=== PATIENT | male | born 1940 | race Caucasian/White ===

== ENCOUNTER 2018-03-10 21:02 | Inpatient (IN) | payer MEDICARE, MEDICAID ==
--- NOTE | 2018-03-10 21:09 | C.PDOC ---
History Of Present Illness 77 year old male presents to the ED [facility] for an evaluation of new onset difficulty walking, slurred speech, and increased worsening confusion for one week. Patient normally uses walker but lately has been having trouble balancing even when using walker. Reports multiple falls this week. Denies changes in appetite, vision changes, nausea, vomiting, diarrhea, abdominal pain, dysuria, hematuria, incontinence, fever, chills. History per EMS, , and patient. HPI limited due to patient's clinical condition. Time Seen by Provider: 03/10/18 21:07 Chief Complaint (Nursing): Altered Mental Status History Per: Patient, EMS, Family () History/Exam Limitations: Clinical Condition Onset/Duration Of Symptoms: Days Current Symptoms Are (Timing): Still Present Usual Baseline: Amb W/Assist (walker) Speech Is: Slurred Decreased Ability To: Walk Associated Symptoms: denies: Fever, Chills, Not Eating, Not Drinking, Vomiting, Diarrhea Past Medical History Reviewed: Historical Data, Nursing Documentation, Vital Signs - Medical History PMH: CAD, Diabetes, HTN, Hypercholesterolemia Surgical History: Coronary Stent - [facility] Procedures INJECT/INFUSE NEC (06/08/14) Family History: States: No Known Family Hx Review Of Systems Except As Marked, All Systems Reviewed And Found Negative. (limited due to patient's clinical condition) Constitutional: Negative for: Fever, Chills Eyes: Negative for: Vision Change Gastrointestinal: Negative for: Nausea, Vomiting, Abdominal Pain, Diarrhea Genitourinary: Negative for: Dysuria, Incontinence, Hematuria Musculoskeletal: Positive for: Other Neurological: Positive for: Change in Speech (slurred speech), Confusion, Altered Mental Status, Other (difficulty walking) Physical Exam - Physical Exam Appears: Non-toxic, No Acute Distress Skin: Warm, Dry Head: Atraumatic Eye(s): bilateral: EOMI Nose: Normal Oral Mucosa: Moist Neck: Supple Chest: Symmetrical Cardiovascular: Rhythm Regular Respiratory: No Rales, No Rhonchi, No Wheezing, Other (CTA B/L) Gastrointestinal/Abdominal: Soft, No Tenderness, No Guarding, No Rebound Extremity: Bilateral: Atraumatic, Normal Color And Temperature, Normal ROM Neurological/Psych: Oriented x3, No Normal Speech (slurred speech ) Gait: With Assistance ED Course And Treatment - Laboratory Results Result Diagrams: 03/10/18 21:22 03/10/18 21:22 ECG: Interpreted By Me, Viewed By Me ECG Rhythm: Sinus Rhythm, R BBB Rate From EC (BPM) O2 Sat by Pulse Oximetry: 100 (RA) Pulse Ox Interpretation: Normal - CT Scan/US Ct head Other Rad Studies (CT/US): Read By Radiologist, Radiology Report Reviewed CT/US Interpretation: EXAM: CT Head without Intravenous Contrast. CLINICAL HISTORY: AMS, SLURRED SPEECH, DIFF WALKING, SOB. TECHNIQUE: Axial computed tomography images of the head/brain without intravenous contrast. 0.00 mGy-cm. COMPARISON: None provided. FINDINGS: BRAIN. Chronic periventricular and subcortical microvascular disease is seen. VENTRICLES: There is generalized parenchymal atrophy noted as demonstrated by symmetrical dilatation of ventricles and sulci. ORBITS: The orbits are unremarkable. SINUSES AND MASTOIDS: The paranasal sinuses and mastoid air cells are clear. BONES: No fracture. SOFT TISSUES: Unremarkable. MISCELLANEOUS: No acute intracranial pathology. IMPRESSION: 1. There is generalized parenchymal atrophy noted as demonstrated by symmetrical dilatation of ventricles and sulci. 2. Chronic periventricular and subcortical microvascular disease is seen. 3. No acute intracranial pathology. . Electronically signed on Mar 10, 2018 9:59:33 PM EST by: Edd Bains M.D., SEJAL Certified By ABR & CBCCT. Fellowship Trained MRI and CT Specialist NIHSS Stroke Scale - Date/Time Evaluation Performed Date Performed: 03/10/18 Time Performed: 21:08 When Was NIHSS Performed: Baseline - How Severe is the Stoke Level of Consciousness: 1=Drowsy LOC to Questions: 0=Both comments correct LOC to commands: 0=Obeys both correctly Best Gaze: 0=Normal Visual: 0=No visual loss Facial: 0=Normal Motor Arm - Left: 0=No drift Motor Arm - Right: 0=No drift Motor Leg - Left: 2=Falls before 5 sec Motor Leg - Right: 2=Falls before 5 sec Limb Ataxia: 0=Absent Sensory: 0=Normal Best Language: 0=No aphasia Dysarthia: 1=Mild to moderate slurring Extinction & Inattention (Neglect): 0=Normal, no object Score: 6 Progress - Re-Evaluation Re-evaluation Note: 03/10/18 23:43 EXAM UNCH INITIAL. 03/10/18 23:47 D/W DR KWAN C/F PMD WILL ADMIT - Data Reviewed Data Reviewed: Lab, Diagnostic imaging, EKG, Old records rTPA Inclusion/Exclusion - Refusal of Treatment Patient Refused Treatment: No - Inclusion Criteria for Altepase Patient is 18 years or Older: Yes Clinical DX Ischemic Stroke Cause Neurological Deficit: Yes Time of Onset Established Less Than 270 Mins Before TX Begin: No Risk/Benefit Discussed With Patient/Family Member Present: No - Exclusion Criteria for Altepase Uncontrolled Hypertension at Time of TX (SBP>185 or DBP>110): No Active Internal Bleeding: No Known Bleeding Diathesis: No Evidence of an Intracranial Hemorrhage: No Evidence Major Acute Infarct w/ Signs Greater Than 1/3 MCA: No Suspicion of Subarachnoid Bleed on PreTX Eval(CT: neg bleed): No - Warning to TPA With Conditions Following Conditions Weighed Against Anticipated Benefit: Yes Condition: Age Greater Than 75 years, Care Team Unable to Determine Eligibilty Medical Decision Making Medical Decision Making: Plan - Bloodwork - CT head - EKG - Bloodwork - CXR - UA - Aspirin 325mg PO TPA not indicated due to time of onset of symptoms. Disposition Counseled Patient/Family Regarding: Studies Performed, Diagnosis - Disposition Disposition: HOSPITALIZED Disposition Time: 23:48 Condition: STABLE - POA Present On Arrival: Falls Or Trauma - Clinical Impression Clinical Impression: Altered mental state, Difficulty walking, Minor head injury without loss of consciousness - Scribe Statement The provider has reviewed the documentation as recorded by the Kiaraibgabriella Bowen All medical record entries made by the Scribe were at my direction and personally dictated by me. I have reviewed the chart and agree that the record accurately reflects my personal performance of the history, physical exam, medical decision making, and the department course for this patient. I have also personally directed, reviewed, and agree with the discharge instructions and disposition.
[2018-03-10 21:46] LABS: INR 1.2; PROTHROMBIN TIME 12.9 SECONDS (9.7-12.2)
[2018-03-10 21:50] LABS: ALB/GLOB RATIO 1.6 (1.0-2.1); ALBUMIN 4.3 g/dL (3.5-5.0); CALCIUM 8.9 mg/dl (8.6-10.4)
[2018-03-10 21:58] LABS: BASO % 0.4 % (0.0-2.0); EOS # 0.2 K/uL (0.0-0.7); HEMOGLOBIN 11.7 g/dL (12.0-18.0); LYMPH # 0.7 K/uL (1.0-4.3); LYMPH % 11.4 % (20.0-40.0); MEAN CELL VOLUME 98.5 fL (80.0-94.0); MEAN CORPUSCULAR HEMOGLOBIN 33.3 pg (27.0-31.0); MEAN CORPUSCULAR HGB CONC 33.8 g/dL (33.0-37.0); MEAN PLATELET VOLUME 8.7 fL (7.2-11.7); MONO # 0.5 K/uL (0.0-0.8); MONO % 9.2 % (0.0-10.0); NEUT # 4.3 K/uL (1.8-7.0); NRBC % 0.1 % (0.0-2.0); RBC 3.51 Mil/uL (4.40-5.90); RED CELL DISTRIBUTION WIDTH 13.4 % (11.5-14.5); WHITE BLOOD COUNT 5.8 K/uL (4.8-10.8)
[2018-03-10 22:00] LABS: TROPONIN I 0.04 ng/mL (0.00-0.120)
[2018-03-10 23:36] LABS: URINE BILIRUBIN NEGATIVE (NEGATIVE); URINE BLOOD NEGATIVE (NEGATIVE); URINE CLARITY Clear (Clear); URINE COLOR Yellow (YELLOW); URINE GLUCOSE (UA) 1+ mg/dL (Normal); URINE LEUKOCYTE ESTERASE NEG Leu/uL (Negative); URINE PROTEIN 2+ mg/dL (NEGATIVE); URINE UROBILINOGEN NORMAL mg/dL (0.2-1.0)
--- NOTE | 2018-03-11 00:33 | CP.PCM.HP ---
<RajJoseph quezada - Last Filed: 03/11/18 02:00> History of Present Illness - History of Present Illness History of Present Illness: Patient is a 77 year old male with past medical history of HTN, HLD, DM, CAD s/p stent presenting to ED with AMS and new onset difficulty walking for 1 week. Hi story difficult to obtain as patient has very garbled speech. Sling Operator service #[id number] able to understand better when patient speaks slowly but still had difficulty understanding. Per ED note, patient typically uses a walker at home but has been having increasing difficulty maintaining balance. Patient was able to endorse multiple falls this past week, most recent one being earlier today. Patient states he was walking and suddenly felt dizzy, with his legs giving out on him. 12 pt ROS difficult to obtain due to language barrier/garbled speech. Patient does endorse "pain everywhere", seemingly chronic in nature. No chest pain or abdominal pain noted, no sob. PMHx: HTN, HLD, DM, CAD PSHx: stent placement Allergies: NKDA Home Medications: Zoloft 25 mg PO daily, Imdur 60 mg PO daily, Lasix 40 mg PO daily, ASA 81 mg PO daily, Amlodipine/Benazepril 1 cap PO daily---call pharmacy in AM to confirm: [facility] [phone] Social Hx: denies alcohol, tobacco, illicit drug use Family Hx: unknown PMD: Dr. Sal Relative contact: Amanda Ricardo, Present on Admission - Present on Admission Any Indicators Present on Admission: Yes Review of Systems - Review of Systems Systems not reviewed;Unavailable: Language Barrier All systems: reviewed and no additional remarkable complaints except Review of Systems: as per HPI Past Patient History - Tetanus Immunizations Tetanus Immunization: Unknown - Past Social History Smoking Status: Former Smoker - CARDIAC Hx Hypercholesterolemia: Yes Hx Hypertension: Yes - ENDOCRINE/METABOLIC Hx Diabetes Mellitus Type 2: Yes - MUSCULOSKELETAL/RHEUMATOLOGICAL Hx Falls: Yes - PSYCHIATRIC Hx Substance Use: No - SURGICAL HISTORY Hx Coronary Stent: Yes Meds Allergies/Adverse Reactions: Allergies Allergy/AdvReac Type Severity Reaction Status Date / Time No Known Allergies Allergy Verified 03/10/18 21:10 Physical Exam - Constitutional Appears: Non-toxic, No Acute Distress, Confused - Head Exam Head Exam: ATRAUMATIC, NORMAL INSPECTION, NORMOCEPHALIC - Eye Exam Eye Exam: EOMI, Normal appearance Pupil Exam: NORMAL ACCOMODATION - ENT Exam ENT Exam: Mucous Membranes Moist, Normal Exam - Neck Exam Neck exam: Positive for: Normal Inspection. Negative for: Tenderness - Respiratory Exam Respiratory Exam: Clear to Auscultation Bilateral. absent: Accessory Muscle Use, Rales, Rhonchi, Wheezes, Respiratory Distress, Stridor - Cardiovascular Exam Cardiovascular Exam: REGULAR RHYTHM, +S1, +S2 - GI/Abdominal Exam GI & Abdominal Exam: Distended, Normal Bowel Sounds, Soft. absent: Firm, Guarding, Organomegaly, Rebound, Tenderness - Extremities Exam Extremities exam: Positive for: normal capillary refill, pedal edema, pedal pulses present. Negative for: calf tenderness - Back Exam Back exam: NORMAL INSPECTION, tenderness - Neurological Exam Neurological exam: Alert, CN II-XII Intact Additional comments: alert to self and place, did not know month - Psychiatric Exam Psychiatric exam: Normal Affect, Normal Mood - Skin Skin Exam: Dry, Intact, Normal Color, Warm Additional comments: bruising noted b/l shins, knees, L lateral thigh--pt has hx of multiple falls Results - Vital Signs Recent Vital Signs: Last Vital Signs Temp 98.1 F 03/10/18 21:05 Pulse 87 03/10/18 23:24 Resp 14 03/10/18 23:24 BP 145/53 L 03/10/18 23:24 Pulse Ox 100 03/11/18 00:17 - Labs Result Diagrams: 03/10/18 21:22 03/10/18 21:22 Labs: Laboratory Results - last 24 hr 03/10/18 03/10/18 03/10/18 21:05 21:22 21:22 WBC 5.8 RBC 3.51 L Hgb 11.7 L Hct 34.5 L MCV 98.5 H MCH 33.3 H MCHC 33.8 RDW 13.4 Plt Count 175 MPV 8.7 Neut % (Auto) 75.0 Lymph % (Auto) 11.4 L [place] % (Auto) 9.2 Eos % (Auto) 4.0 Baso % (Auto) 0.4 Neut # (Auto) 4.3 Lymph # (Auto) 0.7 L [place] # (Auto) 0.5 Eos # (Auto) 0.2 Baso # (Auto) 0.0 PT 12.9 H INR 1.2 APTT 54 H Sodium Potassium Chloride Carbon Dioxide Anion Gap BUN Creatinine Est GFR ( Amer) Est GFR (Non-Af Amer) POC Glucose (mg/dL) 194 H Random Glucose Hemoglobin A1c Calcium Total Bilirubin AST ALT Alkaline Phosphatase Troponin I Total Protein Albumin Globulin Albumin/Globulin Ratio Triglycerides Cholesterol LDL Cholesterol Direct HDL Cholesterol Urine Color Urine Clarity Urine pH Ur Specific [place] Urine Protein Urine Glucose (UA) Urine Ketones Urine Blood Urine Nitrate Urine Bilirubin Urine Urobilinogen Ur Leukocyte Esterase Urine WBC (Auto) Urine RBC (Auto) Blood Type Antibody Screen 03/10/18 03/10/18 03/10/18 21:22 21:22 21:22 WBC RBC Hgb Hct MCV MCH MCHC RDW Plt Count MPV Neut % (Auto) Lymph % (Auto) [place] % (Auto) Eos % (Auto) Baso % (Auto) Neut # (Auto) Lymph # (Auto) [place] # (Auto) Eos # (Auto) Baso # (Auto) PT INR APTT Sodium 139 Potassium 4.3 Chloride 103 Carbon Dioxide 25 Anion Gap 15 BUN 38 H Creatinine 1.8 H Est GFR ( Amer) 44 Est GFR (Non-Af Amer) 37 POC Glucose (mg/dL) Random Glucose 187 H Hemoglobin A1c 6.2 Calcium 8.9 Total Bilirubin 0.6 AST 52 ALT 45 Alkaline Phosphatase 77 Troponin I 0.0400 Total Protein 7.0 Albumin 4.3 Globulin 2.7 Albumin/Globulin Ratio 1.6 Triglycerides 176 H Cholesterol 150 LDL Cholesterol Direct 79 HDL Cholesterol 42 Urine Color Urine Clarity Urine pH Ur Specific [place] Urine Protein Urine Glucose (UA) Urine Ketones Urine Blood Urine Nitrate Urine Bilirubin Urine Urobilinogen Ur Leukocyte Esterase Urine WBC (Auto) Urine RBC (Auto) Blood Type A POSITIVE Antibody Screen Negative 03/10/18 23:31 WBC RBC Hgb Hct MCV MCH MCHC RDW Plt Count MPV Neut % (Auto) Lymph % (Auto) [place] % (Auto) Eos % (Auto) Baso % (Auto) Neut # (Auto) Lymph # (Auto) [place] # (Auto) Eos # (Auto) Baso # (Auto) PT INR APTT Sodium Potassium Chloride Carbon Dioxide Anion Gap BUN Creatinine Est GFR ( Amer) Est GFR (Non-Af Amer) POC Glucose (mg/dL) Random Glucose Hemoglobin A1c Calcium Total Bilirubin AST ALT Alkaline Phosphatase Troponin I Total Protein Albumin Globulin Albumin/Globulin Ratio Triglycerides Cholesterol LDL Cholesterol Direct HDL Cholesterol Urine Color Yellow Urine Clarity Clear Urine pH 6.0 Ur Specific [place] 1.013 Urine Protein 2+ H Urine Glucose (UA) 1+ H Urine Ketones Negative Urine Blood Negative Urine Nitrate Negative Urine Bilirubin Negative Urine Urobilinogen Normal Ur Leukocyte Esterase Neg Urine WBC (Auto) 1 Urine RBC (Auto) < 1 Blood Type Antibody Screen Assessment & Plan - Assessment and Plan (Free Text) Assessment: 77 year old male with PMHx of CAD, HTN, HLD, DM presenting to ED with AMS, new onset difficulty walking x 1 week Plan: AMS, r/o CVA -no neurological deficits noted on PE -trop x 1 negative -s/p ASA 325 mg PO in ED -TPA not indicated due to time of onset of symptoms -CT head: no acute intracranial pathology noted -f/u CT abdomen/pelvis, CT chest -ASA 81 mg PO Daily New Onset Difficulty Walking, Leg Edema, r/o CHF exacerbation -EKG: NSR @ 86 bpm, RBBB, L anterior fascicular block -CXR: no active disease -f/u ECHO -Lasix 40 mg PO daily HTN -currently hypotensive, continue to monitor -home meds held HLD -TG 176 -cholesterol, HDL, LDL wnl -not on home statin DM -A1C 6.2 -not on home meds -accuchecks ACHS PPx, Diet, Disposition -DVT ppx: SCDs -Diet: HHD -PT/OT on board Case discussed with Dr. Brenda Sylvester DO, PGY-1 <Rj Gutierrez P - Last Filed: 03/11/18 05:06> Results - Vital Signs Recent Vital Signs: Last Vital Signs Temp 98.1 F 03/11/18 03:30 Pulse 90 03/11/18 03:59 Resp 20 03/11/18 03:59 BP 152/72 H 03/11/18 03:59 Pulse Ox 100 03/11/18 03:59 - Labs Result Diagrams: 03/11/18 03:59 03/11/18 03:59 Labs: Laboratory Results - last 24 hr 03/10/18 03/10/18 03/10/18 21:05 21:22 21:22 WBC 5.8 RBC 3.51 L Hgb 11.7 L Hct 34.5 L MCV 98.5 H MCH 33.3 H MCHC 33.8 RDW 13.4 Plt Count 175 MPV 8.7 Neut % (Auto) 75.0 Lymph % (Auto) 11.4 L [place] % (Auto) 9.2 Eos % (Auto) 4.0 Baso % (Auto) 0.4 Neut # (Auto) 4.3 Lymph # (Auto) 0.7 L [place] # (Auto) 0.5 Eos # (Auto) 0.2 Baso # (Auto) 0.0 PT 12.9 H INR 1.2 APTT 54 H Puncture Site pCO2 pO2 HCO3 ABG pH ABG Total CO2 ABG O2 Saturation ABG Base Excess ABG Hemoglobin ABG Carboxyhemoglobin POC ABG HHb (Measured) ABG Methemoglobin Ramírez Test A-a O2 Difference Respiratory Index Hgb O2 Saturation Liter Flow FiO2 Sodium Potassium Chloride Carbon Dioxide Anion Gap BUN Creatinine Est GFR ( Amer) Est GFR (Non-Af Amer) POC Glucose (mg/dL) 194 H Random Glucose Hemoglobin A1c Calcium Phosphorus Magnesium Total Bilirubin AST ALT Alkaline Phosphatase Troponin I NT-Pro-B Natriuret Pep Total Protein Albumin Globulin Albumin/Globulin Ratio Triglycerides Cholesterol LDL Cholesterol Direct HDL Cholesterol Urine Color Urine Clarity Urine pH Ur Specific [place] Urine Protein Urine Glucose (UA) Urine Ketones Urine Blood Urine Nitrate Urine Bilirubin Urine Urobilinogen Ur Leukocyte Esterase Urine WBC (Auto) Urine RBC (Auto) Blood Type Antibody Screen 03/10/18 03/10/18 03/10/18 21:22 21:22 21:22 WBC RBC Hgb Hct MCV MCH MCHC RDW Plt Count MPV Neut % (Auto) Lymph % (Auto) [place] % (Auto) Eos % (Auto) Baso % (Auto) Neut # (Auto) Lymph # (Auto) [place] # (Auto) Eos # (Auto) Baso # (Auto) PT INR APTT Puncture Site pCO2 pO2 HCO3 ABG pH ABG Total CO2 ABG O2 Saturation ABG Base Excess ABG Hemoglobin ABG Carboxyhemoglobin POC ABG HHb (Measured) ABG Methemoglobin Ramírez Test A-a O2 Difference Respiratory Index Hgb O2 Saturation Liter Flow FiO2 Sodium 139 Potassium 4.3 Chloride 103 Carbon Dioxide 25 Anion Gap 15 BUN 38 H Creatinine 1.8 H Est GFR ( Amer) 44 Est GFR (Non-Af Amer) 37 POC Glucose (mg/dL) Random Glucose 187 H Hemoglobin A1c 6.2 Calcium 8.9 Phosphorus Magnesium Total Bilirubin 0.6 AST 52 ALT 45 Alkaline Phosphatase 77 Troponin I 0.0400 NT-Pro-B Natriuret Pep Total Protein 7.0 Albumin 4.3 Globulin 2.7 Albumin/Globulin Ratio 1.6 Triglycerides 176 H Cholesterol 150 LDL Cholesterol Direct 79 HDL Cholesterol 42 Urine Color Urine Clarity Urine pH Ur Specific [place] Urine Protein Urine Glucose (UA) Urine Ketones Urine Blood Urine Nitrate Urine Bilirubin Urine Urobilinogen Ur Leukocyte Esterase Urine WBC (Auto) Urine RBC (Auto) Blood Type A POSITIVE Antibody Screen Negative 03/10/18 03/11/18 03/11/18 23:31 03:59 03:59 WBC 6.6 RBC 3.31 L Hgb 10.9 L Hct 32.2 L MCV 97.4 H MCH 32.9 H MCHC 33.8 RDW 13.4 Plt Count 157 MPV 8.6 Neut % (Auto) 80.0 H Lymph % (Auto) 9.9 L [place] % (Auto) 8.6 Eos % (Auto) 1.2 Baso % (Auto) 0.3 Neut # (Auto) 5.2 Lymph # (Auto) 0.6 L [place] # (Auto) 0.6 Eos # (Auto) 0.1 Baso # (Auto) 0.0 PT INR APTT Puncture Site pCO2 pO2 HCO3 ABG pH ABG Total CO2 ABG O2 Saturation ABG Base Excess ABG Hemoglobin ABG Carboxyhemoglobin POC ABG HHb (Measured) ABG Methemoglobin Ramírez Test A-a O2 Difference Respiratory Index Hgb O2 Saturation Liter Flow FiO2 Sodium 138 Potassium 4.1 Chloride 104 Carbon Dioxide 24 Anion Gap 14 BUN 35 H Creatinine 1.4 Est GFR ( Amer) 59 Est GFR (Non-Af Amer) 49 POC Glucose (mg/dL) Random Glucose 183 H Hemoglobin A1c Calcium 8.7 Phosphorus 3.2 Magnesium 2.0 Total Bilirubin 0.6 AST 45 ALT 43 Alkaline Phosphatase 76 Troponin I NT-Pro-B Natriuret Pep 2160 H Total Protein 6.5 Albumin 3.9 Globulin 2.6 Albumin/Globulin Ratio 1.5 Triglycerides Cholesterol LDL Cholesterol Direct HDL Cholesterol Urine Color Yellow Urine Clarity Clear Urine pH 6.0 Ur Specific [place] 1.013 Urine Protein 2+ H Urine Glucose (UA) 1+ H Urine Ketones Negative Urine Blood Negative Urine Nitrate Negative Urine Bilirubin Negative Urine Urobilinogen Normal Ur Leukocyte Esterase Neg Urine WBC (Auto) 1 Urine RBC (Auto) < 1 Blood Type Antibody Screen 03/11/18 04:20 WBC RBC Hgb Hct MCV MCH MCHC RDW Plt Count MPV Neut % (Auto) Lymph % (Auto) [place] % (Auto) Eos % (Auto) Baso % (Auto) Neut # (Auto) Lymph # (Auto) [place] # (Auto) Eos # (Auto) Baso # (Auto) PT INR APTT Puncture Site Rr pCO2 46 H pO2 121 H HCO3 22.9 ABG pH 7.32 L ABG Total CO2 25.1 ABG O2 Saturation 98.5 H ABG Base Excess -2.6 L ABG Hemoglobin 12.9 ABG Carboxyhemoglobin 1.6 H POC ABG HHb (Measured) 1.5 ABG Methemoglobin 1.2 Ramírez Test Pos A-a O2 Difference 50.0 Respiratory Index 0.4 Hgb O2 Saturation 95.8 Liter Flow 3.0 FiO2 32.0 Sodium Potassium Chloride Carbon Dioxide Anion Gap BUN Creatinine Est GFR ( Amer) Est GFR (Non-Af Amer) POC Glucose (mg/dL) Random Glucose Hemoglobin A1c Calcium Phosphorus Magnesium Total Bilirubin AST ALT Alkaline Phosphatase Troponin I NT-Pro-B Natriuret Pep Total Protein Albumin Globulin Albumin/Globulin Ratio Triglycerides Cholesterol LDL Cholesterol Direct HDL Cholesterol Urine Color Urine Clarity Urine pH Ur Specific [place] Urine Protein Urine Glucose (UA) Urine Ketones Urine Blood Urine Nitrate Urine Bilirubin Urine Urobilinogen Ur Leukocyte Esterase Urine WBC (Auto) Urine RBC (Auto) Blood Type Antibody Screen Attending/Attestation - Attestation I have personally seen and examined this patient.: Yes I have fully participated in the care of the patient.: Yes I have reviewed all pertinent clinical information: Yes Notes (Text): 03/11/18 05:00 * Multiple falls * Poor communication due to hoarse voice, noisey non laboured breathing, neck vs vocal cord issue * Chronic leg edema * CRI * 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
[2018-03-11 04:04] LABS: BASO % 0.3 % (0.0-2.0); EOS # 0.1 K/uL (0.0-0.7); EOS % 1.2 % (0.0-4.0); HEMOGLOBIN 10.9 g/dL (12.0-18.0); LYMPH # 0.6 K/uL (1.0-4.3); LYMPH % 9.9 % (20.0-40.0); MEAN CELL VOLUME 97.4 fL (80.0-94.0); MEAN CORPUSCULAR HEMOGLOBIN 32.9 pg (27.0-31.0); MEAN CORPUSCULAR HGB CONC 33.8 g/dL (33.0-37.0); MEAN PLATELET VOLUME 8.6 fL (7.2-11.7); MONO # 0.6 K/uL (0.0-0.8); MONO % 8.6 % (0.0-10.0); NEUT # 5.2 K/uL (1.8-7.0); PLATELET COUNT 157 K/uL (130-400); RBC 3.31 Mil/uL (4.40-5.90); RED CELL DISTRIBUTION WIDTH 13.4 % (11.5-14.5); WHITE BLOOD COUNT 6.6 K/uL (4.8-10.8)
[2018-03-11 04:14] LABS: ALB/GLOB RATIO 1.5 (1.0-2.1); ALBUMIN 3.9 g/dL (3.5-5.0); CALCIUM 8.7 mg/dl (8.6-10.4)
[2018-03-11 04:27] LABS: ABG ALLEN TEST POS; ARTERIAL BLOOD GAS HCO3 22.9 mmol/L (21-28); ARTERIAL BLOOD GAS HEMOGLOBIN 12.9 g/dL (11.7-17.4); ARTERIAL BLOOD GAS O2 SAT 98.5 % (95-98); ARTERIAL BLOOD GAS PCO2 46 mm/Hg (35-45); ARTERIAL BLOOD GAS PH 7.32 (7.35-7.45); ARTERIAL BLOOD GAS PO2 121 mm/Hg (80-100); ARTERIAL BLOOD GAS TCO2 25.1 mmol/L (22-28)
[2018-03-11 06:13] LABS: EOSINOPHIL 1 % (0-4); LYMPHOCYTE 6 % (20-40); MONOCYTE 6 % (0-10); NEUTROPHIL 82 % (50-75); PLATELET ESTIMATE NORMAL (NORMAL); REACTIVE LYMPHOCYTES 5 % (0-0); TOTAL CELLS COUNTED 100
--- NOTE | 2018-03-11 08:08 | CP.PCM.PN ---
<Lynda Tapia - Last Filed: 03/11/18 18:36> Subjective - Date & Time of Evaluation Date of Evaluation: 03/11/18 Time of Evaluation: 08:08 - Subjective Subjective: Medicine Progress Note for Dr. Skyler Starr Patient seen and examined at bedside this morning. Patient alert. Patient knows his name and and where he is but thinks it is February 17. Later in the evening patient was seen and was present. She states patient been falling and unable to walk normally the past 1-2 weeks. Decreased appetite, nausea, vomiting. Patient also breathing noisily and w/ urinary incontinence. All these symptoms are not normal for him. Length of time for major sx: Difficulty walking x 6 months. Feels weak in the knees. Denies LOC and dizzziness. voice change (hoarse voice) x 8 days, with dysphagia weight loss 10 lbs last 3 months left eye vision loss x 6 months Of note patient has had chronic skin changes 2/2 DM per including skin changes in his bilateral lower legs. Due to patient condition ROS unable to be obtained with the patient by himself. Needed assistance with his to speak to him at bedside. Objective - Vital Signs/Intake and Output Vital Signs (last 24 hours): Temp Pulse Resp BP Pulse Ox 98.1 F 95 H 22 142/58 L 99 03/11/18 07:43 03/11/18 07:43 03/11/18 07:43 03/11/18 07:43 03/11/18 07:43 - Medications Medications: Current Medications Aspirin (Aspirin Chewable) 81 mg PO DAILY [facility] Furosemide (Lasix) 40 mg PO DAILY [facility] - Labs Labs: 03/11/18 03:59 03/11/18 03:59 PT 12.9 SECONDS (9.7-12.2) H 03/10/18 21:22 INR 1.2 03/10/18 21:22 APTT 54 SECONDS (21-34) H 03/10/18 21:22 - Constitutional Appears: Well, Non-toxic, Other (alert but disoriented - knows name, but not date. Thinks it is January.) - Head Exam Head Exam: ATRAUMATIC, NORMAL INSPECTION - Eye Exam Eye Exam: EOMI, Normal appearance - ENT Exam ENT Exam: Normal Exam - Neck Exam Neck Exam: Full ROM - Respiratory Exam Respiratory Exam: Clear to Ausculation Bilateral, NORMAL BREATHING PATTERN - Cardiovascular Exam Cardiovascular Exam: REGULAR RHYTHM - GI/Abdominal Exam GI & Abdominal Exam: Soft, Normal Bowel Sounds Additional comments: abdominal obesity. central abdominal hernia. - Exam Additional comments: bed wet with urine - Extremities Exam Extremities Exam: Calf Tenderness (bilateral tenderness to squeezing), Normal Capillary Refill Additional comments: left mid tibia to foot chronic skin changes. right ankle to foot chronic skin changes. Both chronic skin changes/erythema decreased upon elevation of LE. - Neurological Exam Neurological Exam: Alert, Awake - Skin Skin Exam: Dry, Intact, Normal Color, Warm Assessment and Plan - Assessment and Plan (Free Text) Assessment: 77 y/o male with PMHx of DM, CAD, HTN presents 03/11 in the morning with CVA r/o, hoarse voice, CHF exacerbation r/o. CVA - r/o (no CVA), difficulty walking, frequent falls -no neurological deficits noted on physical exam. -CT head: no acute intracranial pathology noted. No mass, no hemorrhage, chronic changes only. -pending bone scan -pending b/l hip and pelvis xray -pending lab workup: vit b12, folate, RPR w/ reflex -Unlikely 2/2 cardiac acute changes. trop x 1 negative. EKG: NSR @ 86 bpm, RBBB, L anterior fascicular block. TPA not indicated due to time of onset of symptoms. GIUSEPPE duplex artery: negative. Unlikely infectious; no leukocytosis, afebrile, urinalysis negative for UTI. -difficulty walking likely 2/2 chronic deconditioning due to 6 month hx -vascular insufficiency consistent in physical exam findings, patient endorses pain on feet w/ pressure r/o CHF exacerbation -BNP 2160 on admission 03/11, -r/o CHF exacerbation though unlikely; patient clinically dry and lung exam unremarkable -ECHO: pending read -d/c Lasix 40 mg PO daily -CXR: no active disease -electrolytes wnl -trend CBC and CMP qAM Hoarse voice/dysphagia/GE junction abn'l/hiatal hernia -ENT consult ordered, possible bedside laryngoscope -upper endoscopy possible with GI consult: soft tissue density noted on CT chest, abd, pelvis 03/11. Hiatal hernia noted on CT as well and patient reports occassional heartburn Dr Betts consulted Ascending Aortic Aneurysm Enlarged -at 4.[address], recommend repeat imaging in 1 year to remeasure aneurysm -patient states he is a nonsmoker BPH -continue with home finasteride 5 mg daily Anemia -f/u stool occult -f/u vit b12, folate HTN -currently hypetensive SBP 160s, was hypotensive on admission, continue to monitor -home meds held in the AM but resumed two separate medications as followed (patient on home medication amlodipine/benazepril) --amlodipine 5 mg --lisinopril 10 mg (was on benazepril 20 mg but will hold increased dose for now) HLD -crestor 5 mg po qhs DM -A1C 6.2 -> IGT? On admission -not on home meds per admission note, but endorses novolog of unknown dose -will call PMD or pharmacy tomorrow to confirm DM meds, Dr. 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 Sal to ask about possible psychosis Hx CAD s/p stent -ASA, plavix, crestor - must confirm with Dr. Sal -DVT ppx: SCDs -GI ppx: protonix 40 mg BID -Diet: HHD case discussed with Dr. Skyler Tapia PGY1 <Dennis Starr - Last Filed: 03/16/18 16:11> Objective - Vital Signs/Intake and Output Vital Signs (last 24 hours): Temp Pulse Resp BP Pulse Ox 98.1 F 100 H 22 130/76 96 03/14/18 07:26 03/14/18 07:26 03/14/18 07:26 03/14/18 07:26 03/14/18 07:26 - Labs Labs: 03/14/18 06:35 03/14/18 06:35 PT 12.9 SECONDS (9.7-12.2) H 03/10/18 21:22 INR 1.2 03/10/18 21:22 APTT 54 SECONDS (21-34) H 03/10/18 21:22 Attending/Attestation - Attestation I have personally seen and examined this patient.: Yes I have fully participated in the care of the patient.: Yes I have reviewed all pertinent clinical information, including history, physical exam and plan: Yes Notes (Text): 03/16/18 16:11 This is a late entry. Care of this patient was gone over with resident Dr. Tapia. Dennis Starr D.O.
--- NOTE | 2018-03-11 08:31 | CT ---
Date of service: 03/10/2018 PROCEDURE: CT HEAD WITHOUT CONTRAST. HISTORY: AMS, SLURRED SPEECH, DIFF WALKING COMPARISON: None available. TECHNIQUE: Axial computed tomography images were obtained through the head/brain without intravenous contrast. Radiation dose: Total exam DLP = 1464.88 mGy-cm. This CT exam was performed using one or more of the following dose reduction techniques: Automated exposure control, adjustment of the mA and/or kV according to patient size, and/or use of iterative reconstruction technique. FINDINGS: HEMORRHAGE: No intracranial hemorrhage. BRAIN: No mass effect or edema. Moderate age-appropriate diffuse atrophy. Mild chronic periventricular white matter lucency consistent with microvascular ischemic change. No evidence of acute infarct. VENTRICLES: Unremarkable. No hydrocephalus. CALVARIUM: Unremarkable. PARANASAL SINUSES: Unremarkable as visualized. No significant inflammatory changes. MASTOID AIR CELLS: Unremarkable as visualized. No inflammatory changes. OTHER FINDINGS: None. IMPRESSION: No intracranial mass, hemorrhage or evidence of acute infarct. Chronic involutional change. The preliminary findings for this examination were reported by [facility] at 9:59 p.m. on 03/10/2018. There is concurrence of this report with the preliminary findings.
--- NOTE | 2018-03-11 08:41 | RAD ---
Date of service: 03/10/2018 HISTORY: Code Stroke COMPARISON: No prior. FINDINGS: LUNGS: No active pulmonary disease. PLEURA: No significant pleural effusion identified, no pneumothorax apparent. CARDIOVASCULAR: No aortic atherosclerotic calcification present. Normal cardiac size. No pulmonary vascular congestion. OSSEOUS STRUCTURES: No significant abnormalities. VISUALIZED UPPER ABDOMEN: Normal. OTHER FINDINGS: None. IMPRESSION: No active disease.
[2018-03-11] MEDS ORDERED: Glucagon Recombinant 1 mg Inj IM PRN (09:21)
[2018-03-11] MEDS ORDERED: Dextrose 50% SYRINGE Inj (50 ml) IV PRN (09:21)
--- NOTE | 2018-03-11 12:57 | CT ---
Date of service: 03/11/2018 PROCEDURE: CT Chest, Abdomen and Pelvis without intravenous contrast HISTORY: SOB, garbled breathing and generalized abd pain COMPARISON: None available. TECHNIQUE: Radiation dose: Total exam DLP = 2407.81 mGy-cm. This CT exam was performed using one or more of the following dose reduction techniques: Automated exposure control, adjustment of the mA and/or kV according to patient size, and/or use of iterative reconstruction technique. FINDINGS: CT CHEST WITHOUT CONTRAST: LUNGS: Clear. No nodule, mass or consolidation. MEDIASTINUM: Aneurysmal dilatation of the ascending thoracic aorta to a diameter of 4.4 cm. Mild dilatation of the main pulmonary artery to a diameter of 3.3 cm. This may correlate with pulmonary arterial hypertension. Mild cardiomegaly. Coronary arterial calcification. No pericardial effusion. Please note that there is mild distention of the thoracic esophagus with gas. There is a small hiatal hernia. At the level of the gastroesophageal junction in the lower thorax, there is soft tissue density likely within the herniated stomach or at the GE junction which should be further evaluated with endoscopy to exclude neoplasm. LYMPH NODES: Unremarkable. PLEURA: Unremarkable. No pneumothorax. No pleural fluid. BONES: No acute fracture. There is productive bony change seen at the right 6th costovertebral junction with sclerosis and cortical thickening of the posterior medial aspect of the right 6th rib. Uncertain significance. Possibly posttraumatic. Rule out metastasis. There is similar productive bony change at the left AC costovertebral junction with cortical thickening/sclerosis of a longer segment of the posteromedial left 8th rib. Again, possibly posttraumatic but rule out metastasis. Correlate with radionuclide bone scan. OTHER FINDINGS: None. CT ABDOMEN AND PELVIS: LIVER: Unremarkable. No gross lesion or ductal dilatation. GALLBLADDER AND BILE DUCTS: Cholelithiasis. No mural thickening or pericholecystic fluid. PANCREAS: Unremarkable. No gross lesion or ductal dilatation. SPLEEN: Unremarkable. ADRENALS: Unremarkable. No mass. KIDNEYS AND URETERS: Unremarkable. No hydronephrosis. No solid mass. VASCULATURE: There is atherosclerotic calcification of the abdominal aorta. There is no evidence of abdominal aortic aneurysm. BOWEL: Unremarkable. No obstruction. No gross mural thickening. APPENDIX: Normal appendix. PERITONEUM: No ascites or pneumoperitoneum. Very small umbilical hernia containing only mesenteric fat. LYMPH NODES: Unremarkable. No enlarged lymph nodes. BLADDER: Unremarkable. REPRODUCTIVE: Unremarkable. BONES: No acute fracture. There is a small sclerotic lesion in the right iliac bone adjacent to the sacroiliac articulation, most likely a benign bone. No other lytic or blastic osseous lesions are appreciated. OTHER FINDINGS: None. IMPRESSION: No acute infiltrate. Aneurysmal dilatation of the ascending thoracic aorta. Mild dilatation of the main pulmonary artery. Please correlate for possible pulmonary arterial hypertension. Sclerosis of right 6th posterior rib and left 8th posterior rib. Possibly posttraumatic. Nevertheless, recommend correlation with radionuclide bone scan to exclude metastasis. Probable bone island of the right iliac bone. Cholelithiasis without evidence of cholecystitis. Small hiatal hernia with mild distention of the thoracic esophagus with gas and soft tissue density at the GE junction level. Recommend correlation with endoscopy to rule out neoplasm. The preliminary findings for this examination were reported by [facility] at 5:24 a.m. on 03/11/2018.. There is discordance of this report with the preliminary findings. The hiatal hernia and soft tissue density at the level of gastroesophageal junction were not described in the preliminary report of this examination.
--- NOTE | 2018-03-11 13:41 | VASCLAB ---
Date of service: 03/11/2018 PROCEDURE: Lower Extremity Venous Duplex Exam. HISTORY: Leg swelling, calf tenderness PRIORS: None. TECHNIQUE: Bilateral common femoral, femoral, popliteal and posterior tibial, peroneal and great saphenous veins were evaluated. Flow was assessed with color Doppler, compressibility, assessment of phasic flow and augmentation response. Report prepared by ALVIN Vidales FINDINGS: RIGHT: 1. Common Femoral Vein: 1.1. Compressibility - Fully compressible: Thrombus - None : Flow - Phasic: Augmentation -Normal: Reflux - None. 2. Femoral Vein: 2.1. Compressibility - Fully compressible: Thrombus - None : Flow - Phasic: Augmentation -Normal: Reflux - None. 3. Popliteal Vein: 3.1. Compressibility - Fully compressible: Thrombus - None : Flow - Phasic: Augmentation -Normal: Reflux - None. 4. Posterior Tibial Vein: 4.1. Compressibility - Fully compressible: Thrombus - None: Flow - Phasic: Augmentation -Normal: Reflux - None. 5. Peroneal Vein: 5.1. Compressibility - Fully compressible: Thrombus - None: Flow - Phasic: Augmentation -Normal: Reflux - None. 6. Great Saphenous Vein: 6.1. Compressibility - Fully compressible: Thrombus - None: Flow - Phasic: Augmentation - Normal: Reflux - None. LEFT: 1. Common Femoral Vein: 1.1. Compressibility - Fully compressible: Thrombus - None: Flow - Phasic: Augmentation -Normal: Reflux - None. 2. Femoral Vein: 2.1. Compressibility - Fully compressible: Thrombus - None: Flow - Phasic: Augmentation -Normal: Reflux - None. 3. Popliteal Vein: 3.1. Compressibility - Fully compressible: Thrombus - None : Flow - Phasic: Augmentation -Normal: Reflux - None. 4. Posterior Tibial Vein: 4.1. Compressibility - Fully compressible: Thrombus - None: Flow - Phasic: Augmentation -Normal: Reflux - None. 5. Peroneal Vein: 5.1. UNABLE TO VISUALIZE DUE TO SWELLING 6. Great Saphenous Vein: 6.1. Compressibility - Fully compressible: Thrombus - None: Flow - Phasic: Augmentation - Normal: Reflux - None. OTHER FINDINGS: Right: None significant. Left: None significant. IMPRESSION: Right: No evidence of deep or superficial vein thrombosis of the right lower extremity. Normal valve function noted of the right side. Left: No evidence of deep or superficial vein thrombosis of the left lower extremity, for the imaged veins. Normal valve function noted of the left side.
--- NOTE | 2018-03-11 19:38 | CP.PCM.CON ---
History of Present Illness - History of Present Illness History of Present Illness: 77 yo male admitted with multiple falls and change in mental status suspected of having a stoke. Patient is on ASA and Plavix S/P cardiac stent over one year ago. Asked to see due to anemia and finding of soft tissue mass near GE junction on CT Scan for further evaluation. According to family patient has been haveing swallowing troubles as well. Review of Systems - Review of Systems Systems not reviewed;Unavailable: Dementia, Altered Mental Status Past Patient History - Tetanus Immunizations Tetanus Immunization: Unknown - Past Medical History & Family History Past Medical History?: No - Past Social History Smoking Status: Never Smoked - CARDIAC Hx Hypercholesterolemia: Yes Hx Hypertension: Yes - ENDOCRINE/METABOLIC Hx Diabetes Mellitus Type 2: Yes - MUSCULOSKELETAL/RHEUMATOLOGICAL Hx Falls: Yes - PSYCHIATRIC Hx Substance Use: No - SURGICAL HISTORY Hx Coronary Stent: Yes Meds Allergies/Adverse Reactions: Allergies Allergy/AdvReac Type Severity Reaction Status Date / Time No Known Allergies Allergy Verified 03/10/18 21:10 - Medications Medications: Current Medications Acetaminophen (Tylenol 325mg Tab) 650 mg PO Q6 PRN PRN Reason: Pain, moderate (4-7) Amlodipine Besylate (Norvasc) 5 mg PO DAILY [facility] Aspirin (Ecotrin) 81 mg PO DAILY [facility] Clopidogrel Bisulfate (Plavix) 75 mg PO DAILY [facility] Dextrose (Dextrose 50% Inj) 0 ml IV STAT PRN; Protocol PRN Reason: Hypoglycemia Protocol Dextrose (Glutose 15) 0 gm PO ONCE PRN; Protocol PRN Reason: Hypoglycemia Protocol Finasteride (Proscar) 5 mg PO DAILY [facility] Glucagon (Glucagen Diagnostic Kit) 0 mg IM STAT PRN; Protocol PRN Reason: Hypoglycemia Protocol Dextrose (Dextrose 5% In Water 1000 Ml) 1,000 mls @ 0 mls/hr IV .Q0M PRN; Protocol PRN Reason: Hypoglycemia Protocol Insulin Human Regular (Novolin R) 0 unit SC ACHS [facility]; Protocol Isosorbide Mononitrate (Imdur) 30 mg PO DAILY [facility] Lisinopril (Zestril) 10 mg PO DAILY [facility] Last Admin: 03/11/18 17:34 Dose: 10 mg Olanzapine (Zyprexa) 5 mg PO DAILY [facility] Rosuvastatin Calcium (Crestor) 5 mg PO HS [facility] Sertraline HCl (Zoloft) 100 mg PO DAILY [facility] Physical Exam - Constitutional Appears: No Acute Distress - Head Exam Head Exam: ATRAUMATIC, NORMOCEPHALIC - Respiratory Exam Respiratory Exam: Decreased Breath Sounds - Cardiovascular Exam Cardiovascular Exam: REGULAR RHYTHM, +S1 - GI/Abdominal Exam GI & Abdominal Exam: Normal Bowel Sounds, Soft. absent: Tenderness - Rectal Exam Rectal Exam: Deferred - Extremities Exam Extremities exam: Positive for: normal inspection Results - Vital Signs Recent Vital Signs: Last Vital Signs Temp 98.3 F 03/11/18 16:54 Pulse 83 03/11/18 16:54 Resp 20 03/11/18 16:54 BP 171/67 H 03/11/18 16:54 Pulse Ox 96 03/11/18 16:54 - Labs Result Diagrams: 03/11/18 03:59 03/11/18 03:59 Labs: Laboratory Results - last 24 hr 03/10/18 03/10/18 03/10/18 21:05 21:22 21:22 WBC 5.8 RBC 3.51 L Hgb 11.7 L Hct 34.5 L MCV 98.5 H MCH 33.3 H MCHC 33.8 RDW 13.4 Plt Count 175 MPV 8.7 Neut % (Auto) 75.0 Lymph % (Auto) 11.4 L Ada % (Auto) 9.2 Eos % (Auto) 4.0 Baso % (Auto) 0.4 Neut # (Auto) 4.3 Lymph # (Auto) 0.7 L Ada # (Auto) 0.5 Eos # (Auto) 0.2 Baso # (Auto) 0.0 Neutrophils % (Manual) Lymphocytes % (Manual) Reactive Lymphs % Monocytes % (Manual) Eosinophils % (Manual) Platelet Estimate RBC Morphology PT 12.9 H INR 1.2 APTT 54 H Puncture Site pCO2 pO2 HCO3 ABG pH ABG Total CO2 ABG O2 Saturation ABG Base Excess ABG Hemoglobin ABG Carboxyhemoglobin POC ABG HHb (Measured) ABG Methemoglobin Ramírez Test A-a O2 Difference Respiratory Index Hgb O2 Saturation Liter Flow FiO2 Sodium Potassium Chloride Carbon Dioxide Anion Gap BUN Creatinine Est GFR ( Amer) Est GFR (Non-Af Amer) POC Glucose (mg/dL) 194 H Random Glucose Hemoglobin A1c Calcium Phosphorus Magnesium Total Bilirubin AST ALT Alkaline Phosphatase Troponin I NT-Pro-B Natriuret Pep Total Protein Albumin Globulin Albumin/Globulin Ratio Triglycerides Cholesterol LDL Cholesterol Direct HDL Cholesterol Urine Color Urine Clarity Urine pH Ur Specific Marshall Urine Protein Urine Glucose (UA) Urine Ketones Urine Blood Urine Nitrate Urine Bilirubin Urine Urobilinogen Ur Leukocyte Esterase Urine WBC (Auto) Urine RBC (Auto) Blood Type Antibody Screen 03/10/18 03/10/18 03/10/18 21:22 21:22 21:22 WBC RBC Hgb Hct MCV MCH MCHC RDW Plt Count MPV Neut % (Auto) Lymph % (Auto) Ada % (Auto) Eos % (Auto) Baso % (Auto) Neut # (Auto) Lymph # (Auto) Ada # (Auto) Eos # (Auto) Baso # (Auto) Neutrophils % (Manual) Lymphocytes % (Manual) Reactive Lymphs % Monocytes % (Manual) Eosinophils % (Manual) Platelet Estimate RBC Morphology PT INR APTT Puncture Site pCO2 pO2 HCO3 ABG pH ABG Total CO2 ABG O2 Saturation ABG Base Excess ABG Hemoglobin ABG Carboxyhemoglobin POC ABG HHb (Measured) ABG Methemoglobin Ramírez Test A-a O2 Difference Respiratory Index Hgb O2 Saturation Liter Flow FiO2 Sodium 139 Potassium 4.3 Chloride 103 Carbon Dioxide 25 Anion Gap 15 BUN 38 H Creatinine 1.8 H Est GFR ( Amer) 44 Est GFR (Non-Af Amer) 37 POC Glucose (mg/dL) Random Glucose 187 H Hemoglobin A1c 6.2 Calcium 8.9 Phosphorus Magnesium Total Bilirubin 0.6 AST 52 ALT 45 Alkaline Phosphatase 77 Troponin I 0.0400 NT-Pro-B Natriuret Pep Total Protein 7.0 Albumin 4.3 Globulin 2.7 Albumin/Globulin Ratio 1.6 Triglycerides 176 H Cholesterol 150 LDL Cholesterol Direct 79 HDL Cholesterol 42 Urine Color Urine Clarity Urine pH Ur Specific Marshall Urine Protein Urine Glucose (UA) Urine Ketones Urine Blood Urine Nitrate Urine Bilirubin Urine Urobilinogen Ur Leukocyte Esterase Urine WBC (Auto) Urine RBC (Auto) Blood Type A POSITIVE Antibody Screen Negative 03/10/18 03/11/18 03/11/18 23:31 03:59 03:59 WBC 6.6 RBC 3.31 L Hgb 10.9 L Hct 32.2 L MCV 97.4 H MCH 32.9 H MCHC 33.8 RDW 13.4 Plt Count 157 MPV 8.6 Neut % (Auto) 80.0 H Lymph % (Auto) 9.9 L Ada % (Auto) 8.6 Eos % (Auto) 1.2 Baso % (Auto) 0.3 Neut # (Auto) 5.2 Lymph # (Auto) 0.6 L Ada # (Auto) 0.6 Eos # (Auto) 0.1 Baso # (Auto) 0.0 Neutrophils % (Manual) 82 H Lymphocytes % (Manual) 6 L Reactive Lymphs % 5 H Monocytes % (Manual) 6 Eosinophils % (Manual) 1 Platelet Estimate Normal RBC Morphology Normal PT INR APTT Puncture Site pCO2 pO2 HCO3 ABG pH ABG Total CO2 ABG O2 Saturation ABG Base Excess ABG Hemoglobin ABG Carboxyhemoglobin POC ABG HHb (Measured) ABG Methemoglobin Ramírez Test A-a O2 Difference Respiratory Index Hgb O2 Saturation Liter Flow FiO2 Sodium 138 Potassium 4.1 Chloride 104 Carbon Dioxide 24 Anion Gap 14 BUN 35 H Creatinine 1.4 Est GFR ( Amer) 59 Est GFR (Non-Af Amer) 49 POC Glucose (mg/dL) Random Glucose 183 H Hemoglobin A1c Calcium 8.7 Phosphorus 3.2 Magnesium 2.0 Total Bilirubin 0.6 AST 45 ALT 43 Alkaline Phosphatase 76 Troponin I NT-Pro-B Natriuret Pep 2160 H Total Protein 6.5 Albumin 3.9 Globulin 2.6 Albumin/Globulin Ratio 1.5 Triglycerides Cholesterol LDL Cholesterol Direct HDL Cholesterol Urine Color Yellow Urine Clarity Clear Urine pH 6.0 Ur Specific Marshall 1.013 Urine Protein 2+ H Urine Glucose (UA) 1+ H Urine Ketones Negative Urine Blood Negative Urine Nitrate Negative Urine Bilirubin Negative Urine Urobilinogen Normal Ur Leukocyte Esterase Neg Urine WBC (Auto) 1 Urine RBC (Auto) < 1 Blood Type Antibody Screen 03/11/18 03/11/18 03/11/18 04:20 11:36 17:07 WBC RBC Hgb Hct MCV MCH MCHC RDW Plt Count MPV Neut % (Auto) Lymph % (Auto) Ada % (Auto) Eos % (Auto) Baso % (Auto) Neut # (Auto) Lymph # (Auto) Ada # (Auto) Eos # (Auto) Baso # (Auto) Neutrophils % (Manual) Lymphocytes % (Manual) Reactive Lymphs % Monocytes % (Manual) Eosinophils % (Manual) Platelet Estimate RBC Morphology PT INR APTT Puncture Site Rr pCO2 46 H pO2 121 H HCO3 22.9 ABG pH 7.32 L ABG Total CO2 25.1 ABG O2 Saturation 98.5 H ABG Base Excess -2.6 L ABG Hemoglobin 12.9 ABG Carboxyhemoglobin 1.6 H POC ABG HHb (Measured) 1.5 ABG Methemoglobin 1.2 Ramírez Test Pos A-a O2 Difference 50.0 Respiratory Index 0.4 Hgb O2 Saturation 95.8 Liter Flow 3.0 FiO2 32.0 Sodium Potassium Chloride Carbon Dioxide Anion Gap BUN Creatinine Est GFR ( Amer) Est GFR (Non-Af Amer) POC Glucose (mg/dL) 171 H 155 H Random Glucose Hemoglobin A1c Calcium Phosphorus Magnesium Total Bilirubin AST ALT Alkaline Phosphatase Troponin I NT-Pro-B Natriuret Pep Total Protein Albumin Globulin Albumin/Globulin Ratio Triglycerides Cholesterol LDL Cholesterol Direct HDL Cholesterol Urine Color Urine Clarity Urine pH Ur Specific Marshall Urine Protein Urine Glucose (UA) Urine Ketones Urine Blood Urine Nitrate Urine Bilirubin Urine Urobilinogen Ur Leukocyte Esterase Urine WBC (Auto) Urine RBC (Auto) Blood Type Antibody Screen - Imaging and Cardiology CT scan - abdomen Status: Image reviewed by me, Report reviewed by me Assessment & Plan (1) Abnormal CT scan, esophagus Assessment and Plan: r/o malignancy, leiomyoma or other submucosal mass of distal esophagus vs thickening related to hiatal hernia. Hold ASA, Plavix to allow for biopsies EGD in am if consent can be obtained Status: Acute (2) Iron deficiency anemia Assessment and Plan: as above stool for OBx3 EGD planned +/- colonoscopy if clinically indicated. Status: Acute
[2018-03-11 21:06] LABS: FOLATE 5.9 ng/mL
[2018-03-11] MEDS: (Novolin R) Insulin Human Regular 100 units/ml vial SC SCH (21:42)
--- NOTE | 2018-03-11 23:07 | CARD ---
APPROVED REPORT Date of service: 03/11/2018 EXAM: Two-dimensional and M-mode echocardiogram with Doppler and color Doppler. 2D DIMENSIONS LVOT Diameter2.0 (1.8-2.4cm)LVEF (%)50.0 (>50%) M-Mode DIMENSIONS IVSd1.09 (0.7-1.1cm)LVDd5.86 (4.0-5.6cm) PWd1.05 (0.7-1.1cm)FS (%) 27 % LVDs4.30 (2.0-3.8cm)LVEF (%)51 (>50%) Aortic Valve AoV Peak Ufaqfsci983.4cm/Bayron Peak GR.15mmHgLVOT Peak Rptljjuz53.1cm/s WILLARD (VMAX)1.50cm2 Mitral Valve MV E Rrhhllsh14.8cm/sMV A Hezzzyjx44.1cm/sE/A ratio1.0 TDI E/Lateral E'0.0E/Medial E'0.0 Tricuspid Valve TR Peak Drozpeud10by/sTR Peak Gr.4mmHg LEFT VENTRICLE The left ventricle is normal size. There is normal left ventricular wall thickness. Left ventricle systolic function is low normal. The Ejection Fraction is 50-55%. There is normal LV segmental wall motion. The left ventricular diastolic function is normal. No left ventricle thrombus noted on this study. RIGHT VENTRICLE The right ventricle is normal size. The right ventricular systolic function is normal. ATRIA The left atrium size is normal. The right atrium size is normal. AORTIC VALVE The aortic valve is not well visualized. No aortic regurgitation is present. There is trace valvular aortic stenosis. MITRAL VALVE Mitral annular calcification is mild. There is no evidence of mitral valve prolapse. There is no mitral valve stenosis. Mitral regurgitation is mild. TRICUSPID VALVE The tricuspid valve is not well visualized. There is mild tricuspid regurgitation. Right ventricular systolic pressure is estimated at less than 30 mmHg. There is no pulmonary hypertension. There is no tricuspid valve prolapse or vegetation. There is no tricuspid valve stenosis. PULMONIC VALVE The pulmonic valve is not well visualized. There is no pulmonic valvular regurgitation. There is no pulmonic valvular stenosis. GREAT VESSELS The aortic root is normal in size. The IVC is normal in size and collapses >50% with inspiration. PERICARDIAL EFFUSION There is no pericardial effusion. There is no pleural effusion. <Conclusion> The left ventricle is normal size. Left ventricle systolic function is low normal. The Ejection Fraction is 50-55%. The left ventricular diastolic function is normal. The right ventricle is normal size. The right ventricular systolic function is normal. The left atrium size is normal. The right atrium size is normal. Mitral regurgitation is mild. There is mild tricuspid regurgitation.
--- NOTE | 2018-03-12 02:18 | CP.PCM.PCO ---
Physician Communication Note - Physician Communication Note Physician Communication Note: Please see above
[2018-03-12] MEDS: (Novolin R) Insulin Human Regular 100 units/ml vial SC SCH ×4 (08:01→22:07)
[2018-03-12 08:46] VITALS: BMI 35.6
[2018-03-12] MEDS ORDERED: Propofol 10 mg/ml Inj (20 ML) ONE (09:06)
[2018-03-12] MEDS ORDERED: Etomidate 20 mg/10ml Inj IV ONE (09:16)
--- NOTE | 2018-03-12 09:21 | CP.PCM.PN ---
Subjective - Date & Time of Evaluation Date of Evaluation: 03/12/18 Time of Evaluation: 09:20 - Subjective Subjective: Attempt to obtain consent from family revealed relative Amanda who did not have POA. She attempted to call her aunt who is patients but she could not be reached. Hold ASA/Plavix Rescehdule EGD for tomorrow if consent can be obtained. Objective - Vital Signs/Intake and Output Vital Signs (last 24 hours): Temp Pulse Resp BP Pulse Ox 98.6 F 90 20 153/73 H 96 03/12/18 07:39 03/12/18 07:39 03/12/18 07:39 03/12/18 07:39 03/12/18 07:39 Intake and Output: 03/12/18 03/12/18 06:59 18:59 Intake Total 250 Balance 250 - Medications Medications: Current Medications Acetaminophen (Tylenol 325mg Tab) 650 mg PO Q6 PRN PRN Reason: Pain, moderate (4-7) Last Admin: 03/11/18 21:40 Dose: 650 mg Amlodipine Besylate (Norvasc) 5 mg PO DAILY [facility] Aspirin (Ecotrin) 81 mg PO DAILY [facility] Clopidogrel Bisulfate (Plavix) 75 mg PO DAILY [facility] Dextrose (Dextrose 50% Inj) 0 ml IV STAT PRN; Protocol PRN Reason: Hypoglycemia Protocol Dextrose (Glutose 15) 0 gm PO ONCE PRN; Protocol PRN Reason: Hypoglycemia Protocol Finasteride (Proscar) 5 mg PO DAILY [facility] Glucagon (Glucagen Diagnostic Kit) 0 mg IM STAT PRN; Protocol PRN Reason: Hypoglycemia Protocol Dextrose (Dextrose 5% In Water 1000 Ml) 1,000 mls @ 0 mls/hr IV .Q0M PRN; Protocol PRN Reason: Hypoglycemia Protocol Insulin Human Regular (Novolin R) 0 unit SC ACHS [facility]; Protocol Last Admin: 03/12/18 08:01 Dose: Not Given Isosorbide Mononitrate (Imdur) 30 mg PO DAILY [facility] Lisinopril (Zestril) 10 mg PO DAILY [facility] Last Admin: 03/11/18 17:34 Dose: 10 mg Olanzapine (Zyprexa) 5 mg PO DAILY [facility] Rosuvastatin Calcium (Crestor) 5 mg PO HS [facility] Last Admin: 03/11/18 21:41 Dose: 5 mg Sertraline HCl (Zoloft) 100 mg PO DAILY [facility] - Labs Labs: 03/11/18 03:59 03/11/18 03:59 PT 12.9 SECONDS (9.7-12.2) H 03/10/18 21:22 INR 1.2 03/10/18 21:22 APTT 54 SECONDS (21-34) H 03/10/18 21:22 Assessment and Plan (1) Abnormal CT scan, esophagus Status: Acute (2) Iron deficiency anemia Status: Acute
[2018-03-12 11:49] LABS: BASO % 0.2 % (0.0-2.0); HEMOGLOBIN 11.3 g/dL (12.0-18.0); LYMPH # 0.6 K/uL (1.0-4.3); LYMPH % 6.2 % (20.0-40.0); MEAN CELL VOLUME 97.9 fL (80.0-94.0); MEAN CORPUSCULAR HEMOGLOBIN 33.3 pg (27.0-31.0); MONO # 0.6 K/uL (0.0-0.8); MONO % 6.2 % (0.0-10.0); NEUT # 7.9 K/uL (1.8-7.0); NEUT % 87.4 % (50.0-75.0); PLATELET COUNT 178 K/uL (130-400); RED CELL DISTRIBUTION WIDTH 13.7 % (11.5-14.5)
[2018-03-12 12:14] LABS: EOSINOPHIL 1 % (0-4); LYMPHOCYTE 8 % (20-40); MONOCYTE 5 % (0-10); NEUTROPHIL 86 % (50-75); PLATELET ESTIMATE NORMAL (NORMAL); TOTAL CELLS COUNTED 100
[2018-03-12 12:15] LABS: ANISOCYTOSIS SLIGHT; GIANT PLATELETS PRESENT; HYPOCHROMIC SLIGHT; IRON 57 ug/dL (49-181); LARGE PLATELETS PRESENT; POIKILOCYTOSIS SLIGHT
[2018-03-12 12:23] LABS: ALB/GLOB RATIO 1.4 (1.0-2.1); ALBUMIN 3.9 g/dL (3.5-5.0); ALT/SGPT 43 U/L (21-72); AST/SGOT 46 U/L (17-59); BLOOD UREA NITROGEN 32 mg/dL (9-20); CALCIUM 8.8 mg/dl (8.6-10.4); GFR NON-AFRICAN AMERICAN 53
[2018-03-12 12:26] LABS: % IRON SATURATION 22 (20-55); TOTAL IRON BINDING CAPACITY 262 ug/dL (250-450)
--- NOTE | 2018-03-12 13:25 | OP ---
PROCEDURE DATE: 03/12/2018 PREOPERATIVE DIAGNOSIS: Hoarseness. POSTOPERATIVE DIAGNOSIS: Hoarseness. PROCEDURE: Flexible laryngoscopy. FINDINGS: Mild edema of the supraglottis DESCRIPTION OF PROCEDURE: The patient was placed in a seated position. The flexible laryngoscope was inserted into the left nasal cavity after it was decongested using Afrin. The scope was passed through nasopharynx, oropharynx, hypopharynx. The pharyngeal milan, base of tongue, vallecula, epiglottis, AE folds, false cords, arytenoids, piriform sinuses were brought into view. Edema and erythema of the false cords was also noted. Secondary to edema of the supraglottis, including the arytenoids and the false cords the vocal cords cannot be fully visualized; however, there does not seem to be any kind of the airway obstruction. The patient also has decreased movement of the vocal cords. No masses or lesions were noted. he scope was removed. The patient tolerated the procedure well. Yaya Pruitt MD [facility]
--- NOTE | 2018-03-12 14:17 | RAD ---
Date of service: 03/12/2018 PROCEDURE: HISTORY: s/p fall COMPARISON: CT chest abdomen and pelvis 03/11/2018 TECHNIQUE: AP pelvis and frog's leg view. FINDINGS: Inferior lumbosacral spondylosis and facet hypertrophic arthrosis. 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 Curvilinear radiolucency projects over the right femoral head overseas series 2496, image 1 and 2. Probable summation effects. No cortical more peripheral fracture seen in typical of positions suggested. Bilateral hip axial joint space narrowing with bilateral inferior and bilateral superior acetabular and femoral spurring noted. Subchondral cystic changes along each superior acetabular aspect. Sacroiliac joints unremarkable. Trace sclerotic changes symphysis pubis. Atherosclerotic vascular calcifications present. IMPRESSION: No suspect fracture. Degenerative changes both hips and inferior lumbosacral spine Other findings as above.
[2018-03-12] MEDS ORDERED: Iodixanol 320 MG/ML 100 ML BOTTLE IV ONE (14:53)
--- NOTE | 2018-03-12 17:03 | CP.PCM.PN ---
<Lynda Tapia - Last Filed: 03/12/18 17:03> Subjective - Date & Time of Evaluation Date of Evaluation: 03/12/18 Time of Evaluation: 16:49 - Subjective Subjective: Medicine Progress Note for Dr. Avina Patient seen and evaluated at bedside this morning. Patient said he did not want anyone to touch him. He initially refused blood work and was swinging his arms to prevent the solid waste management engineer to touch him per surrounding customer support advisor. Patient was also aggressive later in the day when he went to [facility]. Was paged and given 0.5 mg IV ativan, which calmed him. Asleep when patient's arrived in the evening s/p ativan. Due to patient condition ROS unable to be obtained, though in the morning, patient states that he feels fine and wants to be left alone. Objective - Vital Signs/Intake and Output Vital Signs (last 24 hours): Temp Pulse Resp BP Pulse Ox 98.9 F 78 20 132/66 98 03/12/18 16:00 03/12/18 16:00 03/12/18 16:00 03/12/18 16:00 03/12/18 16:00 Intake and Output: 03/12/18 03/12/18 06:59 18:59 Intake Total 250 360 Balance 250 360 - Medications Medications: Current Medications Acetaminophen (Tylenol 325mg Tab) 650 mg PO Q6 PRN PRN Reason: Pain, moderate (4-7) Last Admin: 03/11/18 21:40 Dose: 650 mg Amlodipine Besylate (Norvasc) 5 mg PO DAILY [facility] Last Admin: 03/12/18 10:15 Dose: 5 mg Aspirin (Ecotrin) 81 mg PO DAILY [facility] Clopidogrel Bisulfate (Plavix) 75 mg PO DAILY [facility] Dextrose (Dextrose 50% Inj) 0 ml IV STAT PRN; Protocol PRN Reason: Hypoglycemia Protocol Dextrose (Glutose 15) 0 gm PO ONCE PRN; Protocol PRN Reason: Hypoglycemia Protocol Finasteride (Proscar) 5 mg PO DAILY [facility] Last Admin: 03/12/18 10:18 Dose: 5 mg Glucagon (Glucagen Diagnostic Kit) 0 mg IM STAT PRN; Protocol PRN Reason: Hypoglycemia Protocol Dextrose (Dextrose 5% In Water 1000 Ml) 1,000 mls @ 0 mls/hr IV .Q0M PRN; Protocol PRN Reason: Hypoglycemia Protocol Insulin Human Regular (Novolin R) 0 unit SC ACHS [facility]; Protocol Last Admin: 03/12/18 11:47 Dose: Not Given Isosorbide Mononitrate (Imdur) 30 mg PO DAILY [facility] Last Admin: 03/12/18 10:15 Dose: 30 mg Lisinopril (Zestril) 10 mg PO DAILY [facility] Last Admin: 03/12/18 10:15 Dose: 10 mg Olanzapine (Zyprexa) 5 mg PO DAILY [facility] Last Admin: 03/12/18 10:17 Dose: 5 mg Rosuvastatin Calcium (Crestor) 5 mg PO HS [facility] Last Admin: 03/11/18 21:41 Dose: 5 mg Sertraline HCl (Zoloft) 100 mg PO DAILY [facility] Last Admin: 03/12/18 10:17 Dose: 100 mg - Labs Labs: 03/12/18 11:16 03/12/18 11:16 PT 12.9 SECONDS (9.7-12.2) H 03/10/18 21:22 INR 1.2 03/10/18 21:22 APTT 54 SECONDS (21-34) H 03/10/18 21:22 - Constitutional Appears: Non-toxic, Agitated, Confused - Eye Exam Eye Exam: EOMI, Normal appearance - Respiratory Exam Respiratory Exam: Clear to Ausculation Bilateral, NORMAL BREATHING PATTERN - Cardiovascular Exam Cardiovascular Exam: REGULAR RHYTHM - GI/Abdominal Exam GI & Abdominal Exam: Soft, Hernia, Normal Bowel Sounds. absent: Guarding, Rigid, Tenderness Additional comments: abdominal obesity - Extremities Exam Extremities Exam: Pedal Edema Additional comments: left mid tibia to foot chronic skin changes. right ankle to foot chronic skin changes. Both chronic skin changes/erythema decreased upon elevation of LE. - Neurological Exam Neurological Exam: Alert, Altered, Awake. absent: Oriented x3 - Psychiatric Exam Psychiatric exam: Agitated - Skin Skin Exam: Dry, Intact, Normal Color, Warm Additional comments: ecchymosis posterior lower ribs Assessment and Plan - Assessment and Plan (Free Text) Assessment: 77 y/o male with PMHx of DM, CAD, HTN presents 03/11 in the morning with difficulty walking, frequent falls, AMS, and possible dysphagia. Difficulty walking, frequent falls -no neurological deficits noted on physical exam -CT head: no acute intracranial pathology noted. No mass, no hemorrhage, chronic changes only. -ECHO wnl -Unlikely 2/2 cardiac acute changes. trop x 1 negative. EKG: NSR @ 86 bpm, RBBB, L anterior fascicular block. TPA not indicated due to time of onset of symptoms. GIUSEPPE duplex artery: negative. Unlikely infectious; no leukocytosis, afebrile, urinalysis negative for UTI. -difficulty walking likely 2/2 chronic deconditioning due to 6 month hx -vascular insufficiency consistent in physical exam findings, patient endorses pain on feet w/ pressure -pending bone scan -b/l hip and pelvis xray 03/12: chronic degen changes -negative lab workup: vit b12, folate, RPR w/ reflex -PT/OT Dementia -per family patient been abnormally forgetful recently and not oriented to time -neuro consult placed to eval for dementia, Dr. Zamorano. Recs appreciated. Hoarse voice/dysphagia/GE junction abn'l/hiatal hernia -ENT consult ordered. Bedside laryngoscope ordered: mild edema noted. -upper endoscopy with GI consult: soft tissue density noted on CT chest, abd, pelvis 03/11. Hiatal hernia noted on CT as well and patient reports occassional heartburn Dr Betts consulted. Procedure 03/13. NPO after MN placed. Ascending Aortic Aneurysm Enlarged -at 4.[address], recommend repeat imaging in 1 year to remeasure aneurysm -recommend BP control BPH -continue with home finasteride 5 mg daily HTN -currently hypetensive SBP 160s, was hypotensive on admission, continue to monitor -home meds held in the AM but resumed two separate medications as followed (patient on home medication amlodipine 5 /benazepril 20) --amlodipine 5 mg --lisinopril 10 mg Anemia -f/u stool occult -b12 and folate wnl HLD -crestor 5 mg po qhs DM -A1C 6.2 On admission -not on home meds per admission note, but endorses novolog of unknown dose -will call PMD or pharmacy tomorrow to confirm DM meds, Dr. 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 -Ordered psych consult Dr. Martin to evaluate further. Recs appreciated. -team called Dr. Sal to ask about possible psychosis. He did not prescribe olanzapine. Will call pharmacy tomorrow and will bring back bottles, will see provider. states does not see psychiatrist outpatient. Hx CAD s/p stent -ASA -crestor -can d/c plavix; patient had stents placed > 1 year ago; confirmed by -DVT ppx: SCDs -GI ppx: protonix 40 mg BID -Diet: HHD, NPO after MN for EGD 03/13 <Miriam Avina V - Last Filed: 03/13/18 00:16> Objective - Vital Signs/Intake and Output Vital Signs (last 24 hours): Temp Pulse Resp BP Pulse Ox 98.9 F 78 20 132/66 98 03/12/18 16:00 03/12/18 16:00 03/12/18 16:00 03/12/18 16:00 03/12/18 16:00 Intake and Output: 03/12/18 03/13/18 18:59 06:59 Intake Total 480 Balance 480 - Medications Medications: Current Medications Acetaminophen (Tylenol 325mg Tab) 650 mg PO Q6 PRN PRN Reason: Pain, moderate (4-7) Last Admin: 03/11/18 21:40 Dose: 650 mg Amlodipine Besylate (Norvasc) 5 mg PO DAILY [facility] Last Admin: 03/12/18 10:15 Dose: 5 mg Aspirin (Ecotrin) 81 mg PO DAILY [facility] Clopidogrel Bisulfate (Plavix) 75 mg PO DAILY [facility] Dextrose (Dextrose 50% Inj) 0 ml IV STAT PRN; Protocol PRN Reason: Hypoglycemia Protocol Dextrose (Glutose 15) 0 gm PO ONCE PRN; Protocol PRN Reason: Hypoglycemia Protocol Finasteride (Proscar) 5 mg PO DAILY [facility] Last Admin: 03/12/18 10:18 Dose: 5 mg Glucagon (Glucagen Diagnostic Kit) 0 mg IM STAT PRN; Protocol PRN Reason: Hypoglycemia Protocol Dextrose (Dextrose 5% In Water 1000 Ml) 1,000 mls @ 0 mls/hr IV .Q0M PRN; Protocol PRN Reason: Hypoglycemia Protocol Insulin Human Regular (Novolin R) 0 unit SC ACHS [facility]; Protocol Last Admin: 03/12/18 22:07 Dose: Not Given Isosorbide Mononitrate (Imdur) 30 mg PO DAILY [facility] Last Admin: 03/12/18 10:15 Dose: 30 mg Lisinopril (Zestril) 10 mg PO DAILY [facility] Last Admin: 03/12/18 10:15 Dose: 10 mg Olanzapine (Zyprexa) 5 mg PO DAILY [facility] Last Admin: 03/12/18 10:17 Dose: 5 mg Rosuvastatin Calcium (Crestor) 5 mg PO HS [facility] Last Admin: 03/12/18 22:06 Dose: 5 mg Sertraline HCl (Zoloft) 100 mg PO DAILY [facility] Last Admin: 03/12/18 10:17 Dose: 100 mg - Labs Labs: 03/12/18 11:16 03/12/18 11:16 PT 12.9 SECONDS (9.7-12.2) H 03/10/18 21:22 INR 1.2 03/10/18 21:22 APTT 54 SECONDS (21-34) H 03/10/18 21:22 Attending/Attestation - Attestation I have personally seen and examined this patient.: Yes I have fully participated in the care of the patient.: Yes I have reviewed all pertinent clinical information, including history, physical exam and plan: Yes Notes (Text): Patient seen, examined, and case discussed with medical insurance coding specialist. This is my first encounter with the patient. Patient seen this afternoon 1:30PM in bed; resting not aggressive during my examination. I discussed with his nurse, Mitzi who reports earlier today, patient was very abruptly aggressive and even during his scans during the day there were periods of aggression. 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 who patient's allows to discuss medical information with as well as for translation given [place] is [place]. Per , patient has been noted for increasing aggression over the past month, reporting outbursts, mild forgetfulness, making threatening statements to his . There has been no new medications over the past month. No new stressors. is not aware if there is any history of mental illness in the family. She also reported that the patient is reporting he wants his son, who he has not had no contact with for the past 32 years. 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 She also reports at baseline patient is supposed to use a rolling walker, but has not been, has been mostly bed bound; and also reports he had two falls on Sunday but was able to get up but the fall on Sunday he was not able to get up and noted his legs had buckle beneath him and both she and her landlord noted it was extremely difficult to help him up given his obese, heavy habitus. Patient has prior cardiac history, initially at [facility] and subsequently at [facility] in regards to his cardiac stents, which he has 3 stents total, which were placed more than 3 years ago. I have reviewed with her so far the workup, including the abnormality noted over the esophagus and the recommending for EGD which she is agreeable to with GI, and the evaluation by ENT as well. I reported to her the CT scan negative for acute intracranial hemorrhage, no acute fracture noted on hip xray, and due to his habitus unlikely to obtain MRI; may need to go to open MRI. She is amenable for rehab for her , given PT/OT evaluations, I have advised her Dr. Sal, her PMD, goes to three different ones which social and case management can work to arrange for her. I have place neurology to evaluate for possible dementia and psychiatry given increasing aggressive and possible PTSD. 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 Assessment and Plan 1. Gait Impairment, History of Frequent falls Assessment/Plan * no neurological deficits noted on physical exam * CT head: no acute intracranial pathology noted. No mass, no hemorrhage, chronic changes only. * ECHO (03/11/18): left ventricle is normal size, left ventricle systolic function, ef: 50-55%, left ventricular diastolic function is normal. right ventricle is normal size. right ventricular systolic function is normal * Troponin Negative * Thyroid studies negative * elevated probnp * Venous dopplers; negative for DVT * b/l hip and pelvis xray 03/12: chronic degenerative changes no fracture noted * PT/OT eval for klaudia * Activity: fall precautions 2) Increasing Aggressive Behavior Assessment/Plan * per patient;s patient been abnormally forgetful recently and not oriented to time for the past one month * neuro consult placed to eval for dementia, Dr. Zamorano. Recs appreciated. * psych consult in light of possible PTSD and increasing aggression * TSH is normal * RPR nonreactive * B12 normal * Folate low 3) Hoarseness voice Assessment/Plan * ENT consult ordered. Bedside laryngoscope ordered: mild edema noted. * Order for additional imaging CT soft tissue and neck per ENT 4) Hiatal Hernia Abnormal Esophagus noted on CT scan Assessment/Plan * GI consult: scheduled for EGD tomorrow; aspirin and plavix on hold * CT Chest/Abdomen/Pelvis (03/11/18): no acute infiltrate. Aneursmal dilatation of ascending thoracic aorta. Mild dilatation of the main pulmonary artery. sclerosis of right 6th posterior rib, and left 8th posterior rib. Bone island of right iliac bone. Cholelithiasis without evidence of cholecystitis. Small hiatal hernia, w mild distension of thoracic esophagus with gas and soft tissue at GE junction level. * EGD tomorrow * Aspirin/Plavix held 4) History of Ascending Aortic Aneurysm Enlarged Assessment/Plan * at 4.[address], recommend repeat imaging in 1 year to remeasure aneurysm * blood pressure control * discussed with who is aware 5) history of BPH Assessment/Plan * continue with home finasteride 5 mg daily 6) Uncontrolled HTN Assessment/Plan * Controlled in the afternoon * norvasc 5mg PO daily * Imdur 30mg PO daily * Lisinopril 10mg PO daily 7) Anemia Assessment/Plan * reticulocyte count pending * b12 and folate wnl * ferritin normal * Iron normal, iron saturation normal * pending occult blood 8) History of Coronary Artery Disease with 3 stents Assessment/Plan * Last stent more than 3 years ago * Aspirin and plavix on hold for EGD * Crestor 5 mg po qhs * Blood pressure controlled including lauren inhibitor, norvasc, and imdur 9) DM, controlled Assessment/Plan * A1C 6.2 On admission * Hypoglycemic protocol * Accuchecks Q6H 10) 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 * c/w olanzapine 5 mg PO daily---> reports he has been on this medication for quite sometime * per family member POC on chart Amanda Ricardo, patient calling for people who already in [place] and catching things in midair that are not present. 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 Ordered psych consult Dr. Martin to evaluate further. Recs appreciated. * Medicine eam called Dr. Sal to ask about possible psychosis. He did not pr escribe olanzapine. Will call pharmacy tomorrow and will bring back bottles, to will see provider. states does not see psychiatrist outpatient. 11) Soft tissue density r/o metastasis Assessment/Plan * CT Chest/Abdomen/Pelvis (03/11/18): no acute infiltrate. Aneursmal dilatation of ascending thoracic aorta. Mild dilatation of the main pulmonary artery. sclerosis of right 6th posterior rib, and left 8th posterior rib. Bone island of right iliac bone. Cholelithiasis without evidence of cholecystitis. Small hiatal hernia, w mild distension of thoracic esophagus with gas and soft tissue at GE junction level. * Bone scan ordered 12) Acute on Chronic Renal Insuffiency Assessment/Plan * elevated creatinine on admission * improving 13) Prophylactic measure * Fall precautions * SCDS * protonix for gi ppx * Aspirin/Plavix held for EGD in AM * KLAUDIA ramírez
[2018-03-13] MEDS: (Novolin R) Insulin Human Regular 100 units/ml vial SC SCH ×4 (00:39→17:23)
--- NOTE | 2018-03-13 07:08 | CP.PCM.PN ---
Subjective - Date & Time of Evaluation Date of Evaluation: 03/13/18 Time of Evaluation: 07:08 - Subjective Subjective: Medicine Progress Note for Dr. Avina Patient seen and examined at bedside this morning. Patient states that all of his lower extremities are hurting including his hips. Otherwise denies chest pain, nausea, vomiting, diarrhea, fever, chills. Patient has been NPO after midnight for EGD. Patient was seen alone at bedside and was taken to EGD by transport immediately after encounter. Objective - Vital Signs/Intake and Output Vital Signs (last 24 hours): Temp Pulse Resp BP Pulse Ox 98.7 F 89 20 136/71 98 03/13/18 00:00 03/13/18 00:00 03/13/18 00:00 03/13/18 00:00 03/13/18 00:00 - Medications Medications: Current Medications Acetaminophen (Tylenol 325mg Tab) 650 mg PO Q6 PRN PRN Reason: Pain, moderate (4-7) Last Admin: 03/11/18 21:40 Dose: 650 mg Amlodipine Besylate (Norvasc) 5 mg PO DAILY [facility] Last Admin: 03/12/18 10:15 Dose: 5 mg Aspirin (Ecotrin) 81 mg PO DAILY [facility] Clopidogrel Bisulfate (Plavix) 75 mg PO DAILY [facility] Dextrose (Dextrose 50% Inj) 0 ml IV STAT PRN; Protocol PRN Reason: Hypoglycemia Protocol Dextrose (Glutose 15) 0 gm PO ONCE PRN; Protocol PRN Reason: Hypoglycemia Protocol Finasteride (Proscar) 5 mg PO DAILY [facility] Last Admin: 03/12/18 10:18 Dose: 5 mg Glucagon (Glucagen Diagnostic Kit) 0 mg IM STAT PRN; Protocol PRN Reason: Hypoglycemia Protocol Dextrose (Dextrose 5% In Water 1000 Ml) 1,000 mls @ 0 mls/hr IV .Q0M PRN; Protocol PRN Reason: Hypoglycemia Protocol Insulin Human Regular (Novolin R) 0 unit SC Q6H [facility]; Protocol Last Admin: 03/13/18 00:39 Dose: Not Given Isosorbide Mononitrate (Imdur) 30 mg PO DAILY [facility] Last Admin: 03/12/18 10:15 Dose: 30 mg Lisinopril (Zestril) 10 mg PO DAILY [facility] Last Admin: 03/12/18 10:15 Dose: 10 mg Olanzapine (Zyprexa) 5 mg PO DAILY [facility] Last Admin: 03/12/18 10:17 Dose: 5 mg Rosuvastatin Calcium (Crestor) 5 mg PO HS [facility] Last Admin: 03/12/18 22:06 Dose: 5 mg Sertraline HCl (Zoloft) 100 mg PO DAILY [facility] Last Admin: 03/12/18 10:17 Dose: 100 mg - Labs Labs: 03/12/18 11:16 03/12/18 11:16 PT 12.9 SECONDS (9.7-12.2) H 03/10/18 21:22 INR 1.2 03/10/18 21:22 APTT 54 SECONDS (21-34) H 03/10/18 21:22 - Constitutional Appears: Well, Non-toxic - Head Exam Head Exam: ATRAUMATIC, NORMAL INSPECTION, NORMOCEPHALIC - Eye Exam Eye Exam: EOMI, Normal appearance - Neck Exam Neck Exam: Normal Inspection - Respiratory Exam Respiratory Exam: Clear to Ausculation Bilateral, NORMAL BREATHING PATTERN - Cardiovascular Exam Cardiovascular Exam: REGULAR RHYTHM - GI/Abdominal Exam GI & Abdominal Exam: Soft, Hernia, Normal Bowel Sounds Additional comments: abdominal obesity - Extremities Exam Additional comments: left mid tibia to foot chronic skin changes. right ankle to foot chronic skin changes. Both chronic skin changes/erythema decreased upon elevation of LE. - Neurological Exam Neurological Exam: Alert, Awake, Oriented x3 Additional comments: He knows his name, , 's name, and location - Psychiatric Exam Additional comments: ecchymosis left posterior ribs - Skin Skin Exam: Dry, Intact, Normal Color, Warm Assessment and Plan - Assessment and Plan (Free Text) Assessment: 77 y/o male with PMHx of DM, CAD, HTN presents 03/11 in the morning with difficulty walking, frequent falls, AMS, and possible dysphagia. Difficulty walking, frequent falls -no neurological deficits noted on physical exam -CT head: no acute intracranial pathology noted. No mass, no hemorrhage, chronic changes only. -soft tissue neck CT suggestive of b/l atherosclerosis -> ordered carotid US -ECHO wnl -Unlikely 2/2 cardiac acute changes. trop x 1 negative. EKG: NSR @ 86 bpm, RBBB, L anterior fascicular block. TPA not indicated due to time of onset of symptoms. GIUSEPPE duplex artery: negative. Unlikely infectious; no leukocytosis, afebrile, urinalysis negative for UTI. 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 Sal, attends and if he can be set to go there Dementia and increased aggression -per family patient been abnormally forgetful and more aggressive recently -neuro consult placed to al for dementia, Dr. Zamorano. Recs appreciated -psych consulted. Dr. 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 Per , patient was in a [facility] for 18 years prior to coming to the in 1989 due to being against [place]. -c/w olanzapine 5 mg daily -team called Dr. Sal to ask about possible psychosis. He did not prescribe olanzapine. Will call pharmacy tomorrow and will bring back bottles, will see provider. states does not see psychiatrist outpatient. -Ordered psych consult. Recs appreciated. Hoarse voice/dysphagia/GE junction abn'l/hiatal hernia -ENT consult ordered. Bedside laryngoscope ordered: mild edema noted. -upper endoscopy with GI consult: soft tissue density noted on CT chest, abd, pelvis 03/11. Hiatal hernia noted on CT as well and patient reports occassional heartburn Dr Betts consulted. -upper endoscopy results 03/13: ulcerative esophagitis, gastritis. Bx done to r/o superimposed [place] - pending bx results. -GI recs to start PPI BID Ascending Aortic Aneurysm Enlarged -at 4.[address], recommend repeat imaging in 1 year to remeasure aneurysm -recommend BP control BPH -continue with home finasteride 5 mg daily HTN -currently hypetensive SBP 160s, was hypotensive on admission, continue to monitor -home meds held in the AM but resumed two separate medications as followed (patient on home medication amlodipine 5 /benazepril 20) --amlodipine 5 mg --lisinopril 10 mg Anemia -f/u stool occult -b12 and folate wnl HLD -crestor 5 mg po qhs DM -A1C 6.2 On admission -not on home meds per admission note, but endorses novolog of unknown dose -will call PMD or pharmacy tomorrow to confirm DM meds, Dr. Sal or pharmacy number on admission note Hx CAD s/p stent -ASA -crestor -continue w/ home plavix due to atherosclerosis, not due to stent which was placed a few years ago (see soft tissue neck CT report) DVT ppx: SCDs GI ppx: protonix 40 mg BID Diet: HHD
[2018-03-13 07:21] LABS: BASO % 0.1 % (0.0-2.0); EOS % 0.1 % (0.0-4.0); HEMOGLOBIN 10.9 g/dL (12.0-18.0); LYMPH # 0.7 K/uL (1.0-4.3); LYMPH % 8.4 % (20.0-40.0); MEAN CELL VOLUME 97.4 fL (80.0-94.0); MEAN CORPUSCULAR HGB CONC 34.9 g/dL (33.0-37.0); MONO # 0.6 K/uL (0.0-0.8); MONO % 7.4 % (0.0-10.0); NEUT # 6.7 K/uL (1.8-7.0); PLATELET COUNT 174 K/uL (130-400); RED CELL DISTRIBUTION WIDTH 13.4 % (11.5-14.5)
[2018-03-13 07:53] LABS: ALB/GLOB RATIO 1.4 (1.0-2.1); ALBUMIN 3.6 g/dL (3.5-5.0); ALT/SGPT 40 U/L (21-72); AST/SGOT 38 U/L (17-59); BLOOD UREA NITROGEN 29 mg/dL (9-20); CALCIUM 8.6 mg/dl (8.6-10.4); GFR NON-AFRICAN AMERICAN 53
[2018-03-13 08:45] LABS: ANISOCYTOSIS SLIGHT; HYPOCHROMIC SLIGHT; LYMPHOCYTE 9 % (20-40); MONOCYTE 5 % (0-10); NEUTROPHIL 86 % (50-75); PLATELET ESTIMATE NORMAL (NORMAL); POIKILOCYTOSIS SLIGHT; TOTAL CELLS COUNTED 100
[2018-03-13] MEDS ORDERED: Lidocaine 4% (Laryng-O-Jet) Kit MM ONE (09:37)
[2018-03-13] MEDS ORDERED: Sodium Chloride 0.9% 1,000 ML IV ONE (09:50)
[2018-03-13] MEDS ORDERED: Midazolam 2 MG/2 ML VIAL ONE (10:02)
--- NOTE | 2018-03-13 10:14 | CT ---
Date of service: 03/12/2018 PROCEDURE: CT NECK WITH CONTRAST HISTORY: hoarseness COMPARISON: None available. TECHNIQUE: CT of the neck with intravenous contrast. Coronal and sagittal reformats generated. Intravenous contrast dose: Visipaque 320, 100 cc Radiation dose: Total exam DLP = 728.68 mGy-cm. This CT exam was performed using one or more of the following dose reduction techniques: Automated exposure control, adjustment of the mA and/or kV according to patient size, and/or use of iterative reconstruction technique. FINDINGS: There is no definitive mass identified in the supra or infrahyoid neck soft tissues or significant lymphadenopathy. Patient's head is rotated toward the right limiting evaluation of the right parapharyngeal space and oropharynx somewhat but no suspicious finding is suggested overall. The oral cavity, pharynx, larynx and glottis appear grossly nonfocal. Vocal cords are symmetric and unremarkable appearing overall. Salivary glands appear unremarkable with atrophies mildly apparent involving the entire thyroid gland. No focal thyroid mass or cyst appreciable. Moderate stenosis of the origin of the right internal carotid artery is appreciated with no significant left ICA stenosis. Atherosclerotic plaque is identified carotid bulbs and proximal right internal carotid artery. Gross multilevel cervical spondylosis appreciated diffusely at the cervical spine in the visualized upper thoracic spine down to the T5-6 disc interspace level potentially reflecting ankylosing spondylitis or possible diffuse idiopathic skeletal hyperostosis. No destructive bony lesion or fracture identified. No suspicious thoracic inlet findings. OTHER FINDINGS: None. IMPRESSION: 1. Suspicious tracheal or laryngeal pathology appreciable grossly. 2. No definite supra or infrahyoid neck mass identified. Significant lymphadenopathy in the neck. 3. Moderate right ICA origin stenosis noted. Bilateral carotid bulbar/right ICA atherosclerosis identified. 4. Extensive diffuse spondylosis throughout the cervical spine and visualized upper thoracic spine potentially reflecting ankylosing spondylitis or DISH. Preliminary report provided by [facility], 03/12/2018 7:11 p.m..
--- NOTE | 2018-03-13 10:28 | CT ---
Date of service: 03/12/2018 PROCEDURE: CT Chest with contrast HISTORY: decreased vocal cord movements COMPARISON: Chest CT without contrast 03/11/2018. TECHNIQUE: Contiguous axial images were obtained through the chest with intravenous contrast enhancement. Sagittal and coronal reconstructions were performed. IV contrast: Visipaque 320, 65 cc Radiation dose: Total exam DLP = 969.63 mGy-cm. This CT exam was performed using one or more of the following dose reduction techniques: Automated exposure control, adjustment of the mA and/or kV according to patient size, and/or use of iterative reconstruction technique. FINDINGS: LUNGS: Mild respiratory motion degrades quality of the exam. Limited trace bilateral dependent atelectasis identified bilaterally. No parenchymal mass or central airway lesions appreciated no definitive infiltrates bilaterally. The trachea appears widely patent throughout though ectatic at the thoracic inlet and upper chest and otherwise appears unremarkable. Total volume loss of the right lung is appreciated when compared to the left of uncertain etiology. Trace linear atelectasis is noted at the left upper lobe laterally at the mid to superior level. MEDIASTINUM: Stable limited ascending thoracic aortic aneurysm 4.4 cm as well as 3.3 cm dilatation of the main pulmonary artery. With potential pulmonary artery hypertension. Coronary artery calcifications again identified.. Normal sized heart. No significant lymphadenopathy. Small hiatal hernia evident once again. Calcified aortic atherosclerosis reiterated. PLEURA: Trace right pleural effusion. No definite left pleural effusion. No pneumothorax bilaterally. BONES: Confluent syndesmophytes/spondylosis is seen throughout the entire thoracic spine and visualized inferior cervical spine in a pattern that may indicate ankylosing spondylitis or DISH. No acute fracture or destructive bony lesion appreciable throughout the thoracic spine. Right 6 than left 8th rib hyperostosis (cortex only) is appreciated once again. UPPER ABDOMEN: Cholelithiasis reiterated. OTHER FINDINGS: None. IMPRESSION: 1. Patent but ectatic trachea without central airway lesion appreciable. 2. Minimal right pleural effusion with dependent atelectasis noted at the right greater than left lower lobes. 3. Ascending thoracic aortic aneurysm reiterated at 4.4 cm with dilatation of the main pulmonary artery as well. Clinically correlate for potential pulmonary artery hypertension. 4. Potential ankylosing spondylitis or DISH based on confluent syndesmophytes throughout the visualized inferior cervical and entire thoracic spine. Hyperostotic right 6 and left 8th ribs (cortex only) reiterated for which bone scan can be utilized for added characterization.
--- NOTE | 2018-03-13 10:43 | CP.PCM.PN ---
Subjective - Date & Time of Evaluation Date of Evaluation: 03/13/18 Time of Evaluation: 10:26 - Subjective Subjective: Brief EGD: EGD done with only Versed sedation and viscous Lidocaine along scope. 1) Severe ulcerative esophagitis with exudate and edema extending from mid- esophagus to the GE junction. NO mass was seen. Biopsies taken. 2) Mild diffuse gastritis. No bleeding. Rec/ BID Protonix Await biopsies to r/o superimposed Adrianna No further work up at this time. Will follow as needed. Objective - Vital Signs/Intake and Output Vital Signs (last 24 hours): Temp Pulse Resp BP Pulse Ox 98.0 F 88 20 164/54 H 97 03/13/18 08:20 03/13/18 08:20 03/13/18 08:20 03/13/18 08:20 03/13/18 08:20 - Medications Medications: Current Medications Acetaminophen (Tylenol 325mg Tab) 650 mg PO Q6 PRN PRN Reason: Pain, moderate (4-7) Last Admin: 03/11/18 21:40 Dose: 650 mg Amlodipine Besylate (Norvasc) 5 mg PO DAILY [facility] Last Admin: 03/13/18 09:39 Dose: Not Given Aspirin (Ecotrin) 81 mg PO DAILY [facility] Clopidogrel Bisulfate (Plavix) 75 mg PO DAILY [facility] Dextrose (Dextrose 50% Inj) 0 ml IV STAT PRN; Protocol PRN Reason: Hypoglycemia Protocol Dextrose (Glutose 15) 0 gm PO ONCE PRN; Protocol PRN Reason: Hypoglycemia Protocol Finasteride (Proscar) 5 mg PO DAILY [facility] Last Admin: 03/13/18 09:39 Dose: Not Given Glucagon (Glucagen Diagnostic Kit) 0 mg IM STAT PRN; Protocol PRN Reason: Hypoglycemia Protocol Dextrose (Dextrose 5% In Water 1000 Ml) 1,000 mls @ 0 mls/hr IV .Q0M PRN; Protocol PRN Reason: Hypoglycemia Protocol Insulin Human Regular (Novolin R) 0 unit SC Q6H [facility]; Protocol Last Admin: 03/13/18 06:30 Dose: Not Given Isosorbide Mononitrate (Imdur) 30 mg PO DAILY [facility] Last Admin: 03/13/18 09:39 Dose: Not Given Lisinopril (Zestril) 10 mg PO DAILY [facility] Last Admin: 03/13/18 09:50 Dose: Not Given Olanzapine (Zyprexa) 5 mg PO DAILY [facility] Last Admin: 03/13/18 09:39 Dose: Not Given Rosuvastatin Calcium (Crestor) 5 mg PO HS [facility] Last Admin: 03/12/18 22:06 Dose: 5 mg Sertraline HCl (Zoloft) 100 mg PO DAILY [facility] Last Admin: 03/13/18 09:39 Dose: Not Given - Labs Labs: 03/13/18 06:56 03/13/18 06:56 PT 12.9 SECONDS (9.7-12.2) H 03/10/18 21:22 INR 1.2 03/10/18 21:22 APTT 54 SECONDS (21-34) H 03/10/18 21:22 Assessment and Plan (1) Abnormal CT scan, esophagus Status: Acute (2) Iron deficiency anemia Status: Acute
[2018-03-13] MEDS ORDERED: Lactated Ringer's 500 ML IV SCH (10:45)
[2018-03-13] MEDS: Potassium Chloride 20 mEq/15 ml LIQ UD PO SCH ×3 (12:22→17:26)
[2018-03-13] MEDS: Pantoprazole 40 mg EC Tab PO SCH (17:22)
[2018-03-14 06:54] LABS: ALB/GLOB RATIO 1.3 (1.0-2.1); ALBUMIN 3.3 g/dL (3.5-5.0); ALT/SGPT 29 U/L (21-72); AST/SGOT 32 U/L (17-59); BLOOD UREA NITROGEN 30 mg/dL (9-20); CALCIUM 8.5 mg/dl (8.6-10.4); GFR NON-AFRICAN AMERICAN 53
[2018-03-14 07:27] VITALS: BP 130/76; PULSE 100; RESP 22; TEMP 98.1; O2SAT 96
[2018-03-14 07:45] LABS: BASO % 0.2 % (0.0-2.0); EOS % 0.5 % (0.0-4.0); HEMOGLOBIN 10.7 g/dL (12.0-18.0); LYMPH # 0.9 K/uL (1.0-4.3); LYMPH % 13.2 % (20.0-40.0); MEAN CELL VOLUME 98.3 fL (80.0-94.0); MEAN CORPUSCULAR HEMOGLOBIN 33.8 pg (27.0-31.0); MEAN CORPUSCULAR HGB CONC 34.4 g/dL (33.0-37.0); MEAN PLATELET VOLUME 9.1 fL (7.2-11.7); MONO # 0.6 K/uL (0.0-0.8); MONO % 8.8 % (0.0-10.0); NEUT # 5.5 K/uL (1.8-7.0); NEUT % 77.3 % (50.0-75.0); RBC 3.15 Mil/uL (4.40-5.90); RED CELL DISTRIBUTION WIDTH 13.4 % (11.5-14.5); WHITE BLOOD COUNT 7.1 K/uL (4.8-10.8)
--- NOTE | 2018-03-14 10:59 | PCM.PSYCH ---
Initial Psychiatric Evaluation - Initial Psychiatric Evaluation Type of Admission: Voluntary Legal Status: Capacity Chief Complaint (in patient's own words): I am feeling okay.' History of Present Illness and Precipitating Events: Patient is a 68 years old [place] male, who lives with his , with past medical history of depression, hypertension, dementia presents to the hospital after having a syncopal episode while at home with his . Today patient was consulted by psychiatry. denies any past history of any inpatient psychiatric hospitalizations and denies any history of follow-up with any psychiatrist. However she reports that patient has been becoming increasingly forgetful and demented. At times, she has seen him hallucinating and talking to himself. At home, his baseline is normally agitated/angry at times. Since 6 months ago, she started noticing that the pt's memory getting worse as he is getting more forgetful. Sometimes he starts playing with his hands and sometimes he tried to grab something in the air. Patient denies any auditory or visual hallucinations. He also denies any suicidal ideation or any suicidal ideation. He denies any drinking or any substance abuse. PMHx: HTN, CAD, HLD, DM PSHx: stent placement Current Medications: Active Medications Generic Name Dose Route Start Last Admin Trade Name Freq PRN Reason Stop Dose Admin Acetaminophen 650 mg 03/11/18 17:42 03/11/18 21:40 Tylenol 325mg Tab PO 650 mg Q6 PRN Administration Pain, moderate (4-7) Amlodipine Besylate 5 mg 03/13/18 13:00 03/13/18 14:06 Norvasc PO Not Given DAILY [facility] Aspirin 81 mg 03/12/18 10:00 Ecotrin PO DAILY [facility] Clopidogrel Bisulfate 75 mg 03/12/18 10:00 Plavix PO DAILY [facility] Dextrose 0 ml 03/11/18 09:21 Dextrose 50% Inj IV STAT PRN Hypoglycemia Protocol Protocol Dextrose 0 gm 03/11/18 09:21 Glutose 15 PO ONCE PRN Hypoglycemia Protocol Protocol Finasteride 5 mg 03/12/18 10:00 03/13/18 12:49 Proscar PO 5 mg DAILY [facility] Administration Glucagon 0 mg 03/11/18 09:21 Glucagen Diagnostic Kit IM STAT PRN Hypoglycemia Protocol Protocol Potassium Phosphate 15 mmole/ 255 mls @ 42.5 mls/hr 03/14/18 11:30 Sodium Chloride IVPB 03/14/18 17:29 ONCE ONE Ibuprofen 600 mg 03/14/18 10:45 Motrin Tab PO BID [facility] Insulin Human Regular 0 unit 03/12/18 23:58 03/14/18 00:00 Novolin R SC Not Given Q6H [facility] Protocol Isosorbide Mononitrate 30 mg 03/13/18 13:00 03/13/18 14:13 Imdur Er PO 30 mg DAILY [facility] Administration Lisinopril 10 mg 03/11/18 15:45 03/13/18 12:49 Zestril PO 10 mg DAILY [facility] Administration Olanzapine 5 mg 03/12/18 10:00 03/13/18 12:50 Zyprexa PO 5 mg DAILY [facility] Administration Pantoprazole Sodium 40 mg 03/13/18 18:00 03/13/18 17:22 Protonix Ec Tab PO 40 mg BID [facility] Administration Potassium Chloride 20 meq 03/14/18 11:00 K-Dur 20 Meq Er Tab PO 03/14/18 11:01 ONCE ONE Rosuvastatin Calcium 5 mg 03/11/18 22:00 03/13/18 21:29 Crestor PO 5 mg HS [facility] Administration Sertraline HCl 100 mg 03/12/18 10:00 03/13/18 12:50 Zoloft PO 100 mg DAILY [facility] Administration Past Psychiatric History - Past Psychiatric History Previous Treatment History: None Pertinent Medical Hx (Current Medical&Sleep Prob, Allergies): Allergies Allergy/AdvReac Type Severity Reaction Status Date / Time No Known Allergies Allergy Verified 03/10/18 21:10 Amlodipine Besylate/Benazepril [Lotrel 10-20 mg Capsule] 1 cap PO DAILY 03/10/18 Aspirin [Aspirin Chewable] 81 mg PO DAILY 03/10/18 Furosemide [Lasix] 40 mg PO DAILY 03/10/18 Isosorbide Mononitrate [Imdur] 60 mg PO DAILY 03/10/18 Sertraline [Zoloft] 25 mg PO DAILY 03/10/18 Carvedilol Phosphate [Carvedilol ER] 40 mg PO DAILY 03/13/18 Review of Systems - Review of Systems All systems: reviewed and no additional remarkable complaints except - Psychiatric Psychiatric: Anxiety, Irritability, Paranoia Mental Status Examination - Personal Presentation Personal Presentation: Looks stated age - Affect Affect: Constricted - Motor Activity Motor Activity: Calm - Reliability in Providing Information Reliability in Providing Information: Poor, due to cognitve impairment - Speech Speech: Organized - Mood Mood: Anxious - Formal Thought Process Formal Thought Process: Hallucinations, Paranoia - Hallucinations/Delusions Hallucinations: Visual Delusions: Persecution - Obsessions/Compulsions Obsessions: No Compulsions: No - Cognitive Functions Orientation: Person, Place Sensorium: Alert Attention/Concentration: Attentive Abstract Thinking: [place] Estimate of Intelligence: Below average Judgement: Imparied, as evidence by: Poor judgement, Intact, as evidence by: Insight regarding need for hospitalization - Risk Risk: Diminished functioning - Strength & Assets Inventory Strength & Assets Inventory: Family support DSM 5 DX - DSM 5 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 daily Patient psychiatrically stable and cleared for discharge. - Smoking Cessation Smoking Cessation Initiated: No
[2018-03-14] MEDS ORDERED: Potassium Chloride 20 mEq ER Tab PO ONE (11:00)
[2018-03-14] MEDS: Pantoprazole 40 mg EC Tab PO SCH (11:08)
[2018-03-14] MEDS ORDERED: Potassium Phosphate 15 MMOLE in Sodium Chloride 0.9% 250 ML IVPB ONE (11:30)
--- NOTE | 2018-03-14 11:39 | CP.PCM.PN ---
Subjective - Date & Time of Evaluation Date of Evaluation: 03/14/18 Time of Evaluation: 11:36 - Subjective Subjective: No painful swallowing noted. H/H stable as well. Findings of EGD d/w and patient yesterday Objective - Vital Signs/Intake and Output Vital Signs (last 24 hours): Temp Pulse Resp BP Pulse Ox 98.1 F 100 H 22 130/76 96 03/14/18 07:26 03/14/18 07:26 03/14/18 07:26 03/14/18 07:26 03/14/18 07:26 Intake and Output: 03/14/18 03/14/18 06:59 18:59 Intake Total 550 Output Total 500 Balance 50 - Medications Medications: Current Medications Acetaminophen (Tylenol 325mg Tab) 650 mg PO Q6 PRN PRN Reason: Pain, moderate (4-7) Last Admin: 03/11/18 21:40 Dose: 650 mg Amlodipine Besylate (Norvasc) 5 mg PO DAILY [facility] Last Admin: 03/14/18 11:09 Dose: 5 mg Aspirin (Ecotrin) 81 mg PO DAILY [facility] Last Admin: 03/14/18 11:08 Dose: 81 mg Clopidogrel Bisulfate (Plavix) 75 mg PO DAILY [facility] Last Admin: 03/14/18 11:08 Dose: 75 mg Dextrose (Dextrose 50% Inj) 0 ml IV STAT PRN; Protocol PRN Reason: Hypoglycemia Protocol Dextrose (Glutose 15) 0 gm PO ONCE PRN; Protocol PRN Reason: Hypoglycemia Protocol Finasteride (Proscar) 5 mg PO DAILY [facility] Last Admin: 03/14/18 11:08 Dose: 5 mg Glucagon (Glucagen Diagnostic Kit) 0 mg IM STAT PRN; Protocol PRN Reason: Hypoglycemia Protocol Potassium Phosphate 15 mmole/ (Sodium Chloride) 255 mls @ 42.5 mls/hr IVPB ONCE ONE Stop: 03/14/18 17:29 Ibuprofen (Motrin Tab) 600 mg PO BID [facility] Last Admin: 03/14/18 11:19 Dose: 600 mg Insulin Human Regular (Novolin R) 0 unit SC Q6H [facility]; Protocol Last Admin: 03/14/18 00:00 Dose: Not Given Isosorbide Mononitrate (Imdur Er) 30 mg PO DAILY [facility] Last Admin: 03/14/18 11:08 Dose: 30 mg Lisinopril (Zestril) 10 mg PO DAILY [facility] Last Admin: 03/14/18 11:09 Dose: 10 mg Olanzapine (Zyprexa) 5 mg PO DAILY [facility] Last Admin: 03/14/18 11:12 Dose: 5 mg Pantoprazole Sodium (Protonix Ec Tab) 40 mg PO BID [facility] Last Admin: 03/14/18 11:08 Dose: 40 mg Rosuvastatin Calcium (Crestor) 5 mg PO HS [facility] Last Admin: 03/13/18 21:29 Dose: 5 mg Sertraline HCl (Zoloft) 100 mg PO DAILY [facility] Last Admin: 03/14/18 11:12 Dose: 100 mg - Labs Labs: 03/14/18 06:35 03/14/18 06:35 PT 12.9 SECONDS (9.7-12.2) H 03/10/18 21:22 INR 1.2 03/10/18 21:22 APTT 54 SECONDS (21-34) H 03/10/18 21:22 - Constitutional Appears: No Acute Distress, Chronically Ill - Respiratory Exam Respiratory Exam: Decreased Breath Sounds, Rhonchi - Cardiovascular Exam Cardiovascular Exam: REGULAR RHYTHM - GI/Abdominal Exam GI & Abdominal Exam: Distended, Soft, Normal Bowel Sounds. absent: Guarding, Tenderness, Mass, Rebound Assessment and Plan (1) Abnormal CT scan, esophagus Assessment & Plan: abnormality reflects edema and swelling of lower esophagus from the reflux disease. Now on BID PPI. Awaiting biopsies. Status: Resolved (2) Iron deficiency anemia Assessment & Plan: Hgb stable at 10-11. Status: Chronic (3) Ulcerative esophagitis Assessment & Plan: Likely related to chronic reflux. Awaiting biopsies and r/o superimposed Adrianna esophagitis. Continue Protonix bid. Will follow as needed. No plans for colonoscopy at this time. Too sick and unstable to withstand a prep and the procedure as he was not sedated for the EGD. Status: Acute (4) Acute gastritis Assessment & Plan: as above Status: Acute
--- NOTE | 2018-03-14 11:59 | VASCLAB ---
Date of service: 03/14/2018 PROCEDURE: Carotid Duplex Exam. HISTORY: Atherosclerosis COMPARISON: None available. TECHNIQUE: Grayscale and duplex Doppler evaluation of the cervical carotid and vertebral arteries were performed. The common carotid, carotid bifurcations and cervical Internal Carotid Artery (ICA) and proximal External Carotid Artery (ECA) were evaluated. The vertebral arteries were evaluated for gross patency and flow direction. Report prepared by ALVIN Vidales FINDINGS: RIGHT CAROTID ARTERIES: 1. Common Carotid Artery: No significant focal plaque formation of the right common carotid artery. Maximum Peak Systolic velocity: 77 cm/sec: End-diastolic velocity 0 cm/sec. 2. Carotid Bifurcation: Homogeneous plaque formation. Maximum Peak Systolic velocity: 66 cm/sec: End-diastolic velocity 8 cm/sec. 3. Internal Carotid Artery: Plaque description: Homogeneous 3.1. Proximal Segment: Peak systolic velocity 88 cm/sec: End-diastolic velocity 17 cm/sec - % stenosis 0-15% 3.2. Middle Segment: Peak systolic velocity 70 cm/sec: End-diastolic velocity 15 cm/sec - % stenosis 0-15% 3.3. Distal Segment: Peak systolic velocity 42 cm/sec: End-diastolic velocity 7 cm/sec - % stenosis 0-15% 4. External Carotid Artery: No significant focal plaque formation. Peak systolic velocity 73 cm/sec 5. ICA/CCA Ratio: 1.1 LEFT CAROTID ARTERIES: 1. Common Carotid Artery: No significant focal plaque formation of the left common carotid artery. Maximum Peak Systolic velocity: 106 cm/sec: End-diastolic velocity 0 cm/sec. 2. Carotid Bifurcation: plaque formation. Maximum Peak Systolic velocity: 64 cm/sec: End-diastolic velocity 0 cm/sec. 3. Internal Carotid Artery: Plaque description: Minimal calcific 3.1. Proximal Segment: Peak systolic velocity 68 cm/sec: End-diastolic velocity 12 cm/sec - % stenosis 0-15% 3.2. Middle Segment: Peak systolic velocity 63 cm/sec: End-diastolic velocity 12 cm/sec - % stenosis 0-15% 3.3. Distal Segment: Peak systolic velocity 55 cm/sec: End-diastolic velocity 13 cm/sec - % stenosis 0-15% 4. External Carotid Artery: No significant focal plaque formation. Peak systolic velocity 93 cm/sec 5. ICA/CCA Ratio: 0.9 VERTEBRAL ARTERIES: 1. Right Vertebral Artery: The right vertebral artery flow direction is antegrade. 2. Left Vertebral Artery: The left vertebral artery flow direction is antegrade. OTHER FINDINGS: 1. Right Brachial Blood pressure: 170/80 mmHg. 2. Left Brachial Blood pressure: 160/60 mmHg. IMPRESSION: RIGHT: Duplex scan does not suggest hemodynamically significant stenosis of the right extracranial carotid arteries. LEFT: Duplex scan does not suggest hemodynamically significant stenosis of the left extracranial carotid arteries.
[2018-03-14] MEDS: (Novolin R) Insulin Human Regular 100 units/ml vial SC SCH ×2 (12:36)
--- NOTE | 2018-03-14 13:04 | CP.PCM.DIS ---
Provider - Provider Date of Admission: 03/10/18 23:48 Attending physician: Miriam Avina DO Primary care physician: PMD: Doron Consults: 03/11/18 18:23 ENT [Otolaryngology Consult] Routine Consulting Provider: Yaya Pruitt Consulting Physician: Yaya Pruitt Reason for Consult: hoarse voice x 8 days, poss bedside laryngoscope 03/11/18 18:24 Gastroenterology Consult Routine Comment: Consulting Provider: Jared Betts Consulting Physician: Jared Betts Reason for Consult: soft tissue density of GE junction on CT 03/12/18 16:44 Psychiatry Consult Routine Comment: Consulting Provider: Andrea Martin Consulting Physician: Andrea Martin Reason for Consult: eval aggression, behavior, hx of [facility] x 18 yrs before 198903/12/18 16:48 Neurology Consult Routine Comment: Consulting Provider: Abi Zamorano Consulting Physician: Abi Zamorano Reason for Consult: eval for dementia 03/12/18 23:58 Case Management Referral Routine Comment: Physician Instructions: pmd: Dr Sal, he has preferences for 3 rehabs Reason For Exam: [email or web address] eval Reason for Referral: Discharge Planning Time Spent in preparation of Discharge (in minutes): 45 Hospital Course - Lab Results Lab Results: Most Recent Lab Values WBC 7.1 K/uL (4.8-10.8) 03/14/18 06:35 RBC 3.15 Mil/uL (4.40-5.90) L 03/14/18 06:35 Hgb 10.7 g/dL (12.0-18.0) L 03/14/18 06:35 Hct 31.0 % (35.0-51.0) L 03/14/18 06:35 MCV 98.3 fL (80.0-94.0) H 03/14/18 06:35 MCH 33.8 pg (27.0-31.0) H 03/14/18 06:35 MCHC 34.4 g/dL (33.0-37.0) 03/14/18 06:35 RDW 13.4 % (11.5-14.5) 03/14/18 06:35 Plt Count 175 K/uL (130-400) 03/14/18 06:35 MPV 9.1 fL (7.2-11.7) 03/14/18 06:35 Neut % (Auto) 77.3 % (50.0-75.0) H 03/14/18 06:35 Lymph % (Auto) 13.2 % (20.0-40.0) L 03/14/18 06:35 Owen % (Auto) 8.8 % (0.0-10.0) 03/14/18 06:35 Eos % (Auto) 0.5 % (0.0-4.0) 03/14/18 06:35 Baso % (Auto) 0.2 % (0.0-2.0) 03/14/18 06:35 Neut # (Auto) 5.5 K/uL (1.8-7.0) 03/14/18 06:35 Lymph # (Auto) 0.9 K/uL (1.0-4.3) L 03/14/18 06:35 Owen # (Auto) 0.6 K/uL (0.0-0.8) 03/14/18 06:35 Eos # (Auto) 0.0 K/uL (0.0-0.7) 03/14/18 06:35 Baso # (Auto) 0.0 K/uL (0.0-0.2) 03/14/18 06:35 Neutrophils % (Manual) 86 % (50-75) H 03/13/18 06:56 Lymphocytes % (Manual) 9 % (20-40) L 03/13/18 06:56 Reactive Lymphs % 5 % (0-0) H 03/11/18 03:59 Monocytes % (Manual) 5 % (0-10) 03/13/18 06:56 Eosinophils % (Manual) 1 % (0-4) 03/12/18 11:16 Platelet Estimate Normal (NORMAL) 03/13/18 06:56 Large Platelets Present 03/12/18 11:16 Giant Platelets Present 03/12/18 11:16 RBC Morphology Normal 03/11/18 03:59 Hypochromasia (manual) Slight 03/13/18 06:56 Poikilocytosis (manual Slight 03/13/18 06:56 Anisocytosis (manual) Slight 03/13/18 06:56 Retic Count 1.4 % (0.5-1.5) 03/13/18 06:56 PT 12.9 SECONDS (9.7-12.2) H 03/10/18 21:22 INR 1.2 03/10/18 21:22 APTT 54 SECONDS (21-34) H 03/10/18 21:22 Puncture Site Rr 03/11/18 04:20 pCO2 46 mm/Hg (35-45) H 03/11/18 04:20 pO2 121 mm/Hg (80-100) H 03/11/18 04:20 HCO3 22.9 mmol/L (21-28) 03/11/18 04:20 ABG pH 7.32 (7.35-7.45) L 03/11/18 04:20 ABG Total CO2 25.1 mmol/L (22-28) 03/11/18 04:20 ABG O2 Saturation 98.5 % (95-98) H 03/11/18 04:20 ABG Base Excess -2.6 mmol/L (-2.0-3.0) L 03/11/18 04:20 ABG Hemoglobin 12.9 g/dL (11.7-17.4) 03/11/18 04:20 ABG Carboxyhemoglobin 1.6 % (0.5-1.5) H 03/11/18 04:20 POC ABG HHb (Measured) 1.5 % (0.0-5.0) 03/11/18 04:20 ABG Methemoglobin 1.2 % (0.0-3.0) 03/11/18 04:20 Ramírez Test Pos 03/11/18 04:20 A-a O2 Difference 50.0 mm/Hg 03/11/18 04:20 Respiratory Index 0.4 03/11/18 04:20 Hgb O2 Saturation 95.8 % (95.0-98.0) 03/11/18 04:20 Liter Flow 3.0 03/11/18 04:20 FiO2 32.0 % 03/11/18 04:20 Sodium 139 mmol/L (132-148) 03/14/18 06:35 Potassium 3.2 mmol/L (3.6-5.2) L 03/14/18 06:35 Chloride 108 mmol/L (98-107) H 03/14/18 06:35 Carbon Dioxide 24 mmol/L (22-30) 03/14/18 06:35 Anion Gap 10 (10-20) 03/14/18 06:35 BUN 30 mg/dL (9-20) H 03/14/18 06:35 Creatinine 1.3 mg/dL (0.8-1.5) 03/14/18 06:35 Est GFR ( Amer) > 60 03/14/18 06:35 Est GFR (Non-Af Amer) 53 03/14/18 06:35 POC Glucose (mg/dL) 273 mg/dL (65-110) H 03/14/18 12:14 Random Glucose 186 mg/dL (75-110) H 03/14/18 06:35 Hemoglobin A1c 6.2 % (4.2-6.5) 03/10/18 21:22 Calcium 8.5 mg/dl (8.6-10.4) L 03/14/18 06:35 Phosphorus 2.3 mg/dL (2.5-4.5) L 03/14/18 06:35 Magnesium 2.0 mg/dL (1.6-2.3) 03/14/18 06:35 Iron 57 ug/dL (49-181) 03/12/18 11:16 TIBC 262 ug/dL (250-450) 03/12/18 11:16 % Saturation 22 (20-55) 03/12/18 11:16 Ferritin 141.0 ng/mL 03/12/18 11:16 Total Bilirubin 0.7 mg/dL (0.2-1.3) 03/14/18 06:35 AST 32 U/L (17-59) 03/14/18 06:35 ALT 29 U/L (21-72) 03/14/18 06:35 Alkaline Phosphatase 67 U/L (38-126) 03/14/18 06:35 Troponin I 0.0400 ng/mL (0.00-0.120) 03/10/18 21:22 NT-Pro-B Natriuret Pep 5620 pg/mL (0-900) H 03/13/18 06:56 Total Protein 6.0 g/dL (6.3-8.3) L 03/14/18 06:35 Albumin 3.3 g/dL (3.5-5.0) L 03/14/18 06:35 Globulin 2.7 gm/dL (2.2-3.9) 03/14/18 06:35 Albumin/Globulin Ratio 1.3 (1.0-2.1) 03/14/18 06:35 Triglycerides 176 mg/dL (0-149) H 03/10/18 21:22 Cholesterol 150 mg/dL (0-199) 03/10/18 21:22 LDL Cholesterol Direct 79 mg/dL (0-129) 03/10/18 21:22 HDL Cholesterol 42 mg/dL (30-70) 03/10/18 21:22 Vitamin B12 848 pg/mL (239-931) 03/11/18 19:42 Folate 5.9 ng/mL 03/11/18 19:42 Free T4 1.16 ng/dL (0.78-2.19) 03/12/18 11:16 TSH 3rd Generation 1.20 mIU/L (0.46-4.68) 03/12/18 11:16 Urine Color Yellow (YELLOW) 03/10/18 23:31 Urine Clarity Clear (Clear) 03/10/18 23: Urine pH 6.0 (5.0-8.0) 03/10/18 23: Ur Specific [place] 1.013 (1.003-1.030) 03/10/18 23: Urine Protein 2+ mg/dL (NEGATIVE) H 03/10/18 23:31 Urine Glucose (UA) 1+ mg/dL (Normal) H 03/10/18 23:31 Urine Ketones Negative mg/dL (NEGATIVE) 03/10/18 23: Urine Blood Negative (NEGATIVE) 03/10/18 23: Urine Nitrate Negative (NEGATIVE) 03/10/18 23: Urine Bilirubin Negative (NEGATIVE) 03/10/18 23: Urine Urobilinogen Normal mg/dL (0.2-1.0) 03/10/18 23: Ur Leukocyte Esterase Neg J Carlos/uL (Negative) 03/10/18 23: Urine WBC (Auto) 1 /hpf (0-5) 03/10/18 23: Urine RBC (Auto) < 1 /hpf (0-3) 03/10/18 23:31 RPR Nonreactive (NONREACTIVE) 03/11/18 19:42 Blood Type A POSITIVE 01/13/19 21:22 Antibody Screen Negative 03/10/18 21:22 - Hospital Course Hospital Course: On admission: Patient is a 77 year old male with past medical history of HTN, HLD, DM, CAD s/p stent presenting to ED with AMS and new onset difficulty walking for 1 week. History difficult to obtain as patient has very garbled speech. [facility] service #[id number] able to understand better when patient speaks slowly but still had difficulty understanding. Per ED note, patient typically uses a walker at home but has been having increasing difficulty maintaining balance. Patient was able to endorse multiple falls this past week, most recent one being earlier today. Patient states he was walking and suddenly felt dizzy, with his legs giving out on him. 12 pt ROS difficult to obtain due to language barrier/garbled speech. Patient does endorse "pain everywhere", seemingly chronic in nature. No chest pain or abdominal pain noted, no sob. On discharge: Patient was hospitalized 03/11-03/14. Patient initially came to the emergency room as a code stroke, which was rescinded due to the lack of focal deficits and a negative head CT on admission. He also came in with altered mental status, hoarse voice, and complaining of occasional heartburn and gagging/vomiting up food. CT significant of a soft tissue change in the gastroesophageal junction. Of note patient also with hoarseness of voice, which ENT has did a laryngoscopy of without further recommendations. The hoarseness of voice resolved as well as the altered mental status throughout hospitalization. Of note, GI did upper endoscopy on him and diagnosed him with ulcerative esophagitis and gastritis. PPI twice a day recommended per GI. Due to frequent falls, patient also had x- rays and bone scans which were all negative for fractures. Medicine team has discussed importance of becoming more physically conditioned as well as weight loss, which could be playing a role in bone pain of weight bearing joint and his acid reflux symptoms. 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 Neuro also evaluated the patient for dementia and recommended to start aricept. Follow up recommended with primary care physician Dr. Sal, who is affiliated with the rehab facility upon discharge, [facility]. Discharge instructions: Patient is to be discharged to subacute rehab facility Patient is to take the following medications: donepezil 5 mg by mouth daily olanzapine 5 mg by mouth before bedtime pantoprazole 40 mg by mouth twice a day rosuvastatin 5 mg by mouth before bedtime sertraline 100 mg by mouth daily amlodipine 5 mg by mouth daily lisinopril 10 mg by mouth daily aspirin 81 mg by mouth daily plavix 75 mg by mouth daily isosorbide mononitrate 30 mg by mouth daily finasteride 5 mg by mouth daily Patient is to see Dr. Sal, his primary care physician, a week after discharge. Please seek help immediately and go to the nearest emergency room if you have increased chest pain, shortness of breath, palpitations, severe hallucinations, or suicidal or homicidal ideation. *Above is just a summary of hospital events. Please see full medical record for details. Discharge Exam - Head Exam Head Exam: ATRAUMATIC, NORMAL INSPECTION, NORMOCEPHALIC - Eye Exam Eye Exam: EOMI, Normal appearance - ENT Exam ENT Exam: Normal Exam - Respiratory Exam Respiratory Exam: NORMAL BREATHING PATTERN - Cardiovascular Exam Cardiovascular Exam: REGULAR RHYTHM - GI/Abdominal Exam GI & Abdominal Exam: Hernia, Normal Bowel Sounds, Unremarkable. absent: Firm, Guarding, Rebound - Extremities Exam Extremities exam: normal capillary refill Additional comments: left mid tibia to foot chronic skin changes. right ankle to foot chronic skin changes. Both chronic skin changes/erythema decreased upon elevation of LE. Fused 2nd and 3rd toes bilaterally. - Neurological Exam Neurological exam: Alert, Oriented x3 - Psychiatric Exam Psychiatric exam: Normal Affect, Normal Mood - Skin Skin Exam: Dry, Intact, Normal Color, Warm Discharge Plan - Discharge Medications Prescriptions: Donepezil [Aricept] 5 mg PO DAILY #30 tab Olanzapine [Zyprexa] 5 mg PO HS #30 tablet Pantoprazole [Protonix EC Tab] 40 mg PO BID #60 ect Rosuvastatin Calcium [Crestor] 5 mg PO HS #30 tab Sertraline [Zoloft] 100 mg PO DAILY #30 tab - Follow Up Plan Condition: STABLE Disposition: HOME/ ROUTINE Instructions: Altered Mental Status (DC), Preventing Falls, Donepezil, Olanzapine, Pantoprazole, Rosuvastatin, Sertraline Additional Instructions: Patient is to be discharged to subacute rehab facility Patient is to take the following medications: donepezil 5 mg by mouth daily olanzapine 5 mg by mouth before bedtime pantoprazole 40 mg by mouth twice a day rosuvastatin 5 mg by mouth before bedtime sertraline 100 mg by mouth daily amlodipine 5 mg by mouth daily lisinopril 10 mg by mouth daily aspirin 81 mg by mouth daily plavix 75 mg by mouth daily isosorbide mononitrate 30 mg by mouth daily finasteride 5 mg by mouth daily Patient is to see Dr. Sal, his primary care physician, a week after discharge. Please seek help immediately and go to the nearest emergency room if you have increased chest pain, shortness of breath, palpitations, severe hallucitations, or suicidal or homicidal ideation. El paciente debe ser dado de estefania en un centro de rehabil[facility] subagudo El paciente debe gary los siguientes medicamentos: Donepezil 5 mg por va oral todos los tejeda. Olanzapina 5 mg por va oral antes de acostarse Pantoprazol 40 mg por va oral dos veces al da. Rosuvastatina 5 mg por va oral antes de acostarse Sertralina 100 mg por va oral al da. Amlodipina 5 mg por va oral al da. lisinopril 10 mg por va oral al da Aspirina 81 mg por va oral al da. Plavix 75 mg por va oral al da. mononitrato de isosorbida 30 mg por va oral al da Finasterida 5 mg por va oral al da. El paciente debe breanna al Dr. Sal, lozano mdico de atencin primaria, inocencio semana despus del estefania. Busque ayuda de inmediato y dirjase a la kimberly de emergencias ms cercana si tiene ms dolor en el pecho, dificultad para respirar, palpitaciones, alucitaciones graves o inocencio ideacin suicida u homicida. Referrals: Jayy Sal MD [Staff Provider] -
== END 2018-03-14 16:29 | disposition home health service (06) | DRG 948 ==
LOC: C.ER 21:02 → C.9E 23:48 → C.3T 03-11 06:57
PROVIDERS: ADMIT Hospitalist; ATTEND Hospitalist
PROC: 0CJS8ZZ Inspection of Larynx, Via Natural or Artificial Opening Endoscopic (ICD-10-PCS; principal; 2018-03-12)
PROC: 0DB58ZX Excision of Esophagus, Via Natural or Artificial Opening Endoscopic, Diagnostic (ICD-10-PCS; 2018-03-13)
DX: R41.82 Altered mental status, unspecified (principal); K22.10 Ulcer of esophagus without bleeding; R26.2 Difficulty in walking, not elsewhere classified; I45.2 Bifascicular block; G30.9 Alzheimer's disease, unspecified; F02.81 Dementia in other diseases classified elsewhere, unspecified severity, with behavioral disturbance; J38.4 Edema of larynx; K29.00 Acute gastritis without bleeding; K21.9 Gastro-esophageal reflux disease without esophagitis; R29.6 Repeated falls; K80.20 Calculus of gallbladder without cholecystitis without obstruction; K44.9 Diaphragmatic hernia without obstruction or gangrene; R49.0 Dysphonia; R13.10 Dysphagia, unspecified; I25.10 Atherosclerotic heart disease of native coronary artery without angina pectoris; I10 Essential (primary) hypertension; D50.9 Iron deficiency anemia, unspecified; I71.2 Thoracic aortic aneurysm, without rupture; E11.9 Type 2 diabetes mellitus without complications; W19.XXXA Unspecified fall, initial encounter; N40.0 Benign prostatic hyperplasia without lower urinary tract symptoms; E66.9 Obesity, unspecified; E78.5 Hyperlipidemia, unspecified; R32 Unspecified urinary incontinence; E78.00 Pure hypercholesterolemia, unspecified; H54.62 Unqualified visual loss, left eye, normal vision right eye; Z95.5 Presence of coronary angioplasty implant and graft; Z87.891 Personal history of nicotine dependence; Z91.81 History of falling; Z79.02 Long term (current) use of antithrombotics/antiplatelets; Z79.82 Long term (current) use of aspirin; Z79.899 Other long term (current) drug therapy; Z87.19 Personal history of other diseases of the digestive system